=== PATIENT | male | born 1995 | race Caucasian/White ===

== ENCOUNTER 2021-05-06 09:06 | Outpatient (REF) | payer BC, SELFPAY ==
[2021-05-06 11:03] LABS: Alanine Aminotransferase 27 U/L (0-40); Albumin Level 4.4 g/dL (3.5-5.0); Alkaline Phosphatase 54 U/L (39-117); Anion Gap 11 (12-20); Aspartate Amino Transferase 18 U/L (5-37); Bilirubin Total 0.6 mg/dL (0.0-1.0); Blood Urea Nitrogen 9 mg/dL (9-16); Calcium 9.5 mg/dL (8.4-10.2); Carbon Dioxide 29 mmol/L (22-29); Chloride 104 mmol/L (96-108); Cholesterol 119 mg/dL; Estimated Glomerular Filt Rate > 60; Glucose Fasting 91 mg/dL (60-99); HDL Cholesterol 47 mg/dL; LDL Cholesterol Calculated 63 mg/dl; Potassium 4.5 mmol/L (3.3-5.1); Sodium 139 mmol/L (135-145); Total Protein 6.8 g/dL (6.5-8.0); Triglycerides 49 mg/dL
[2021-05-06 11:24] LABS: TSH reflex Free T4 0.84 uIU/mL (0.32-4.0)
== END 2021-05-06 09:07 | disposition home or self-care (01) ==
LOC: HO.WFDLDS 09:06
PROVIDERS: Visit Provider Family Medicine
DX: Z00.00 Encounter for general adult medical examination without abnormal findings (principal)
CPT/HCPCS: 36415; 80053; 80061; 84443

== ENCOUNTER 2021-10-06 10:39 | Outpatient (REF) | payer BC, SELFPAY | END 2021-10-06 10:40 | disposition home or self-care (01) | LOC: HO.HMGCLDS 10:39 | PROVIDERS: PCP Family Medicine; Visit Provider Internal Medicine | DX: Z20.822 Contact with and (suspected) exposure to COVID-19 (principal) | CPT/HCPCS: C9803; U0003; U0005 ==

== ENCOUNTER 2023-11-30 08:48 | Outpatient (AMB) | payer BC, SELFPAY ==
--- NOTE | 2023-11-30 08:52 | A.OFFPC_ITS ---
Vital Signs 11/30/23 08:53 11/30/23 08:54 Height 5 ft 6 in 5 ft 7 in Weight 143 lb BMI 22.4 BP 122/76 Blood Pressure Location Lt brachial Position Sitting Pulse 72 Pulse Source Pulse Oximeter Temp 100 F Temp Source Oral Intake Visit Reasons: PE Intake Note: Patient is here for his physical, and is concerned about bump under right knee, and random twitches in his body, and weight loss. Allergies Fish Containing Products Allergy (Verified 11/30/23 08:56) broke out in hives shellfish derived Allergy (Verified 11/30/23 08:56) food piosining, vomiting, diarrhea Tobacco use date assessed: 11/30/23 Dental Screening Dental Screen Date: 11/30/23 Did you have a dental visit in the last 12 months?: Yes Did you have a dental problem in the last 6 months where you did not have access to dental care?: No Was dental information given to patient?: Patient has dentist HPI PE HPI Details 28 y/o male presents for a CPE w/ f/u la bs and health maintenance. No recent labs to review. PHQ-9 total score is 9. DAYANA-7 12. Pt notes he had went to see a therapist a few weeks ago but did not like them. Pt reports concerns about a bump under R knee. Pt is also concerned about weight loss - he notes he had been putting in effort towards intentional weight loss but states he feels like he has been putting himself in calories deficit lately. He reports twitching at night. REPLACED BY [facility] Surgical History (Updated 11/30/23 @ 09:00 by Radha Nagel CMA) Hx of tonsillectomy Family History (Updated 11/30/23 @ 09:02 by Radha Nagel CMA) Mother Celiac disease Father Heart attack Social History (Updated 11/30/23 @ 09:05 by Radha Nagel CMA) Household Members: Significant Other Both parents involved: No Caregiver staying overnight: No Housing: House Are you a primary early breastfeeding care specialist to a significant other at home: No Do you presently have visiting nurse or other home services: No 75 years or older and lives alone: No Alcohol intake: never Patient Tobacco Use Status: Never used Tobacco e-Cigarette/Vaping Use: Never Used Special ahsan needs: No Agree to transfusion: Yes service: No Current occupational status: employed 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 Cognitive needs: No Hearing needs: No Vision needs: No Questionnaire PHQ-9 Over the last 2 weeks, how often have you been bothered by any of the following problems? 1. Little interest or pleasure in doing things: several days 2. Feeling down, depressed, or hopeless: several days 3. Trouble falling or staying asleep, or sleeping too much: nearly every day 4. Feeling tired or having little energy: nearly every day 5. Poor appetite or overeating: not at all 6. Feeling bad about yourself - or that you are a failure or have let yourself or your family down: several days 7. Trouble concentrating on things, such as reading the newspaper or watching television: not at all 8. Moving or speaking so slowly that other people could have noticed. Or the opposite - being so fidgety or restless that you have been moving around a lot more than usual: not at all 9. Thoughts that you would be better off or of hurting yourself in some way: not at all Total score: 9 Depression Screening Interpretation: Positive Depression Screening Follow-up: Declines treatment Depression Screening Done: Yes 45821 - PHQ-9 Billing: Yes Source: Developed by Drs. Osmel Prakash, Laura Waddell, Nigel Royal and colleagues, with an educational ina from [employer]. Thrive Questionnaire Date Thrive assessed: 11/30/23 I am a: Patient What is your living situation today?: I have a steady place to live Within the past 12 months, did the food you bought not last and you didn't have the money to get more?: Never true Within the past 12 months, did you worry whether your food would run out before you got money to buy more?: Never true Do you have trouble paying for medicines?: No Do you have trouble getting transportation to medical appointments?: No Do you have trouble paying your heating and electricity bill?: No Do you have trouble taking care of your child, family member or friend?: No Do you have trouble with day-to-day activities such as bathing, preparing meals, shopping, managing finances, etc.?: No Are you currently unemployed and looking for a job?: No Are you interested in more education?: No THRIVE Score: 0 AUDIT C Alcohol Use Questionnaire (AUDIT-C) 1. How often do you have a drink containing alcohol?: Never 3. How often do you have six or more drinks on one occasion?: Never Total Score: 0 DAYANA-7 AMB Questionnaire DAYANA-7 Date DAYANA - 7 assessed: 11/30/23 Feeling nervous, anxious, or on edge: 0 = Not at all Not being able to stop or control worryin = Nearly every day Worrying too much about different things: 0 = Not at all Trouble relaxin = Nearly every day Being so restless that it is hard to sit still: 0 = Not at all Becoming easily annoyed or irritable: 3 = Nearly every day Feeling afraid as if something awful might happen: 3 = Nearly every day Total DAYANA-7 score (0-4 normal; 5-9 mild; 10-14 moderate; 15-21 severe): 12 Source: Developed by Drs. Osmel Prakash, Laura Waddell, Nigel Royal and colleagues, with an educational ina from [employer]. DAYANA-7 Assessment Billing DAYANA-7 Assessment Tool: DAYANA-7 Assessment 05242 Review of Systems Const Denies chills, Denies fatigue, Denies fever(s), Denies headache(s) and Denies weakness Eyes Denies change in vision ENT Denies dizziness, Denies headache(s), Denies hearing loss, Denies nasal congestion, Denies sinus pain, Denies sinus pressure and Denies sore throat Card Denies chest pain, Denies lightheadedness, Denies dyspnea and Denies other (palpitations) Resp Denies cough, Denies dyspnea and Denies wheezing GI Denies abdominal pain, Denies melena, Denies hematochezia, Denies change in bowel habits, Denies dyspepsia and Denies nausea Denies hematuria and Denies dysuria Musc Denies abnormal gait, Denies myalgias, Denies arthralgias, Denies numbness and Denies tingling Skin/Breast Denies rash, Denies unusual bruising and Denies wounds Neuro Denies abnormal gait, Denies dizziness, Denies headache(s), Denies memory loss, Denies numbness, Denies Sensory deficit (Neuro), Denies tingling and Denies weakness Psych Reports anxiety, Reports depression and Denies memory loss Endo Denies cold intolerance, Denies fatigue, Denies heat intolerance, Denies polydipsia and Denies polyuria Joo/Lymph Denies easy bleeding and Denies easy bruising Aller/Immun Denies wheezing Physical exam (Primary Care) Vital Signs: Last Vital Signs Temp 100 F 11/30/23 08:54 Pulse 72 11/30/23 08:54 BP 122/76 11/30/23 08:54 BMI result Body Mass Index 22.4 Tobacco/Smoking Status: Tobacco use Status Tobacco use date assessed 11/30/23 11/30/23 09:06 Patient Tobacco Use Status Never used Tobacco 11/30/23 09:06 e-Cigarette/Vaping Use Never Used 11/30/23 09:06 PHQ-9: PHQ-9 Score PHQ-9: Total score 9 11/30/23 09:13 Depression Screening Interpretation: Positive Depression Screening Follow-up: Declines treatment Thrive Assessment: Date of Thrive Assessment Date Thrive assessed 11/30/23 11/30/23 09:13 Const General: no acute distress, well developed, alert and awake Nutritional Appearance: well nourished Orientation/consciousness: patient oriented x3 HENMT Head: Yes normocephalic and Yes atraumatic Ears: hearing grossly normal bilaterally and TM's normal bilaterally General nose exam: Normal external nose present and Normal nares present Mouth: Normal oral and palatal mucosa present and moist mucous membranes Teeth and gingiva: dentition normal Throat: Yes posterior oropharynx normal Eyes General: appearance normal, both eyes and all related structures Pupils: Equal, round and reactive pupils present and Pupil accommodation reflex normal EOM: EOMs intact bilaterally Neck Neck: Yes normal visual inspection, Yes no lymphadenopathy and Yes trachea midline Thyroid: Thyroid normal Carotids: no bruits Lymphatic: no lymphadenopathy noted Chest Chest palpation & inspection: normal inspection of the chest Resp Effort & Inspection: normal respiratory effort Auscultation: clear to auscultation bilaterally Cardio Rate: regular rate Rhythm: regular rhythm Heart sounds: S1 normal heart sound present, S2 normal heart sound present, no gallops, no murmurs and no rubs Bruits: no abdominal aortic bruits and no carotid bruits GI Palpation (GI): No Abdominal aortic bruit present, Soft to palpation, nontender, No hepatosplenomegaly present and No Rebound tenderness present Auscultation: normal bowel sounds General: Yes no CVA tenderness Back/Spine/Pelvis Back: no CVA tenderness Cervical Spine: cervical ROM normal and No Cervical spine tenderness Thoracic/Lumbar Spine: thoraco-lumbar ROM normal, No pain with thoraco-lumbar ROM, No thoracic spinal tenderness and No lumbar spinal tenderness Skin Lesions: no lesions Rashes: no rashes Trauma: no lacerations or abrasions Wounds: no wounds Nails: normal Neuro General: patient oriented x3 Cranial nerves: Yes Equal, round and reactive pupils present Cognition (Neuro): normal cognition Gait exam (Neuro): Normal gait present Motor exam (neuro): 5/5 motor strength present throughout Sensory Exam: No Sensory deficit (Neuro) Deep tendon reflexes (DTR's): Right patellar reflex intensity grade: 2+ and Left patellar reflex intensity grade: 2+ Extrem General: Yes normal to inspection and No edema Psych Appearance: grossly normal Affect: normal affect Attitude: cooperative Thought process: Normal thought process present Assessment and Plan Assessment & Plan (1) Annual physical exam: Code(s): Z00.00 - Encounter for general adult medical examination without abnormal findings Plan: 28-year-old?male?presents?for?complete?physical?exam (2) Depression with anxiety: Code(s): F41.8 - Other specified anxiety disorders Plan: Mild?depression?and?possibly?mild?anxiety. He?has?seen?a?therapist?and?psychiatrist?briefly?in?the?recent?past. Currently?declines?treatment?but?I?did?recommend?he?may ?benefit?from?a?therapist.??I?did?make?him?aware?that?medications?can?sometimes? be?helpful?and?he?can?talk?to?me?if?he?wants?to?reconsider?them. (3) Weight loss: Code(s): R63.4 - Abnormal weight loss Plan: Intentional?weight?loss. However,?patient?seems?to?restrict?his?calories?still?thou gh?his?weight?is?in?the?middle?of?the?normal?range?by?BMI. Encouraged?him?to?start?adding?back?some?calories?so?he?is?no?longer?in?deficit? as?part?of?a?maintenance?plan. Can?consider?protein?shakes (4) Twitching: Code(s): R25.3 - Fasciculation Plan: Patient?notes?that?he?often?skips?early?meals?of?the?day May?have?some?electrolyte?imbalances?and?possible?dehydration Encouraged?good?hydration,?electrolyte?drinks?and?regular?intake?of?food Will?check?labs?including?electrolytes?and?thyroid?level Orders: Orders Comprehensive [place]. Panel Fast Today Z00.00 - Encounter for general adult medical examination without abnormal findings UA and rflx microscopic Today Z00.00 - Encounter for general adult medical examination without abnormal findings TSH reflex Free T4 Today Z00.00 - Encounter for general adult medical examination without abnormal findings Lipid Panel Today Z00.00 - Encounter for general adult medical examination without abnormal findings Microalbumin, Random (w Creat) Today I10 - Essential (primary) hypertension Coding Level of Care Code Est Pt Level 3 (54700) Est Pt Prev Care 18-39y(98529) Diagnoses Annual physical exam Z00.00 Depression with anxiety F41.8 Weight loss R63.4 Twitching R25.3 Additional Codes DAYANA-7 Assessment Billing - DAYANA-7 Assessment Tool: DAYANA-7 Assessment 84909 ([id number])
[2023-11-30 08:54] VITALS: BP 122/76; PULSE 72; TEMP 37.7; BMI 22.4
== END 2023-11-30 09:39 | disposition home or self-care (01) ==
PROVIDERS: PCP Family Medicine; Visit Provider Family Medicine
DX: Z00.00 Encounter for general adult medical examination without abnormal findings (principal); F41.8 Other specified anxiety disorders; R63.4 Abnormal weight loss; R25.3 Fasciculation
CPT/HCPCS: 99395

== ENCOUNTER 2023-12-05 09:36 | Outpatient (REF) | payer BC, SELFPAY ==
[2023-12-05 11:31] LABS: Appearance Urine Clear; Color Urine Yellow; Glucose Urine UA Negative (Negative); Leukocyte Esterase Urine Negative (Negative); Nitrite Urine Negative (Negative); Specific Gravity - Urine <= 1.005 (1.005-1.025); Urine Blood Negative (Negative); Urine Ketones Negative (Negative); Urine Protein Negative (Neg-Trace)
[2023-12-05 12:26] LABS: Alanine Aminotransferase 49 U/L (0-40); Albumin Level 4.4 g/dL (3.5-5.0); Alkaline Phosphatase 50 U/L (39-117); Anion Gap 9 (12-20); Aspartate Amino Transferase 29 U/L (5-37); Bilirubin Total 0.6 mg/dL (0.0-1.0); Blood Urea Nitrogen 14 mg/dL (9-16); Calcium 9.7 mg/dL (8.4-10.2); Carbon Dioxide 30 mmol/L (22-29); Chloride 104 mmol/L (96-108); Cholesterol 124 mg/dL (<200); Estimated Glomerular Filt Rate > 60; Glucose Fasting 86 mg/dL (60-99); HDL Cholesterol 66 mg/dL (>40); LDL Cholesterol Calculated 48 mg/dL (<100); Potassium 3.5 mmol/L (3.3-5.1); Sodium 139 mmol/L (135-145); Triglycerides 50 mg/dL (<150)
[2023-12-05 12:34] LABS: TSH reflex Free T4 1.66 uIU/mL (0.32-4.0)
[2023-12-05 13:06] LABS: Creatinine Urine 6.89 mg/dL; Microalbumin Urine < 5.0 mg/L
== END 2023-12-05 09:37 | disposition home or self-care (01) ==
LOC: HO.WFDLDS 09:36
PROVIDERS: Visit Provider Family Medicine
DX: Z00.00 Encounter for general adult medical examination without abnormal findings (principal); I10 Essential (primary) hypertension
CPT/HCPCS: 36415; 80053; 80061; 81003; 82043; 82570; 84443

== ENCOUNTER 2023-12-21 15:23 | Outpatient (AMB) | payer BC, SELFPAY ==
--- NOTE | 2023-12-21 15:32 | MHC.PC.OV ---
Vital Signs 12/21/23 15:33 Height 5 ft 7 in Weight 143 lb 8 oz BMI 22.5 BP 118/60 Blood Pressure Location Rt brachial Position Sitting Respiration 13 Pulse 72 Pulse Source Pulse Oximeter Temp 98.2 F Temp Source Temporal Artery Scan Pulse Oximetry (%) 99 Oxygen Delivery Method Room Air Intake Visit Reasons: f/u weight loss, labs Rib Cutter Required: No Accompanied by: Self / Same As Patient Allergies Fish Containing Products Allergy (Verified 12/21/23 15:38) broke out in hives shellfish derived Allergy (Verified 12/21/23 15:38) food piosining, vomiting, diarrhea Tobacco use date assessed: 11/30/23 Dental Screening Dental Screen Date: 12/21/23 Did you have a dental visit in the last 12 months?: Yes Did you have a dental problem in the last 6 months where you did not have access to dental care?: No Was dental information given to patient?: Patient has dentist HPI f/u weight loss, labs HPI Details 28 y/o male presents to f/u weight loss/labs. Pt had intentional weight loss and pt seem to restrict his calories. Weight had been in middle of normal range by BMI, encouraged him to start adding back some calories so he is no longer in deficit as part of a maintenance plan. Labs were drawn 12/05/23. Reviewed labs with pt. Mildly elevated ALT of 49. Pt denies any excessive tylenol use. He does note he could drink more water. Weight remains practically unchanged from last office visit 11/30/23. Pt notes depression/anxiety is unchanged. HPI Comments History of Present Illness Details Documentation assistance for Garrett Hope MD, was provided by Elliot Eastman,? Forensic Photographer on 12/21/2023 4:20 PM EST. I, Dr. Hope, have read, observed, and verified documentation. [facility] Medical History (Updated 12/21/23 @ 16:20 by Elliot Eastman) No pertinent past medical history Surgical History Hx of tonsillectomy Family History Mother Celiac disease Father Heart attack Other Mental health disorder Substance abuse Social History Household Members: Significant Other Both parents involved: No Caregiver staying overnight: No Housing: House Are you a primary career development manager to a significant other at home: No Do you presently have visiting nurse or other home services: No 75 years or older and lives alone: No Alcohol intake: never Patient Tobacco Use Status: Never used Tobacco e-Cigarette/Vaping Use: Never Used Special ahsan needs: No Agree to transfusion: Yes service: No Current occupational status: employed 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 Cognitive needs: No Hearing needs: No Vision needs: No Questionnaire Thrive Questionnaire Date Thrive assessed: 11/30/23 DAYANA-7 AMB Questionnaire DAYANA-7 Date DAYANA - 7 assessed: 11/30/23 Source: Developed by Drs. Osmel Prakash, Laura Waddell, Nigel Royal and colleagues, with an educational ina from [employer]. Review of Systems Const Denies chills, Denies fatigue, Denies fever(s), Denies headache(s) and Denies weakness ENT Denies dizziness and Denies headache(s) Card Denies dyspnea Resp Denies cough, Denies dyspnea, Denies wheezing and Denies other (shortness of breath) Musc Denies numbness and Denies tingling Neuro Denies dizziness, Denies headache(s), Denies numbness, Denies tingling and Denies weakness Psych Reports anxiety and Reports depression Endo Denies fatigue Aller/Immun Denies wheezing Physical exam (Primary Care) Vital Signs: Last Vital Signs Temp 98.2 F 12/21/23 15:33 Pulse 72 12/21/23 15:33 Resp 13 12/21/23 15:33 BP 118/60 12/21/23 15:33 Pulse Ox 99 12/21/23 15:33 Oxygen Delivery Method Room Air 12/21/23 15:33 BMI result Body Mass Index 22.5 Tobacco/Smoking Status: Tobacco use Status Tobacco use date assessed 11/30/23 12/21/23 15:40 Patient Tobacco Use Status Never used Tobacco 12/21/23 15:40 e-Cigarette/Vaping Use Never Used 12/21/23 15:40 Thrive Assessment: Date of Thrive Assessment Date Thrive assessed 11/30/23 12/21/23 15:40 Const General: well developed; No acute distress Nutritional Appearance: well nourished Orientation/consciousness: patient oriented x3 HENMT Head: Yes normocephalic and Yes atraumatic Eyes General: appearance normal, both eyes and all related structures Pupils: Equal, round and reactive pupils present EOM: EOMs intact bilaterally Resp Effort & Inspection: normal respiratory effort Neuro General: patient oriented x3 and gait normal Cranial nerves: Yes Equal, round and reactive pupils present Psych Affect: normal affect Assessment and Plan Assessment & Plan (1) Weight loss: Code(s): R63.4 - Abnormal weight loss Plan: Weight?has?remained?steady Continue?healthy?diet (2) Twitching: Code(s): R25.3 - Fasciculation Plan: No?cause?found?for?twitching Thyroid?levels?are?okay.??Electrolytes?are?okay Mild?elevation?in?ALT?and?doubt?this?is?related May?have?intermittent?electrolyte?changes?as?patient?notes?that?he?does?not?drink?much?water. Increase?hydration Will?follow-up?at?next?visit?and?he?can?let?me?know?if?symptoms?are?changing/worsening (3) Elevated ALT measurement: Code(s): R74.01 - Elevation of levels of liver transaminase levels Plan: Mild?elevation?in?ALT Minimal?Tylenol?use.??Patient?has?never?used?alcohol. He?does?note?he?does?not?drink?much?water?so?I?advised?him?to?increase?hydration Will?repeat?in?6?weeks.??If?the?same?or?higher,?will?check?an?ultrasound. (4) Depression with anxiety: Code(s): F41.8 - Other specified anxiety disorders Plan: Patient?notes?some?perseveration He?will?try?bupropion Will?follow-up?in?6?weeks Orders: Orders Comprehensive Met. Panel Today R74.01 - Elevation of levels of liver transaminase levels Hepatitis B,C Profile Today R74.01 - Elevation of levels of liver transaminase levels, Z11.3 - Encounter for screening for infections with a predominantly sexual mode of transmission Medications: New bupropion HCl 75 mg PO DAILY 30 tabs 1RF 30 days Coding Level of Care Code Est Pt Level 4 (74603) Diagnoses Weight loss R63.4 Twitching R25.3 Elevated ALT measurement R74.01 Depression with anxiety F41.8
[2023-12-21 15:33] VITALS: BP 118/60; PULSE 72; RESP 13; TEMP 36.8; O2SAT 99; BMI 22.5
== END 2023-12-21 16:33 | disposition home or self-care (01) ==
PROVIDERS: PCP Family Medicine; Visit Provider Family Medicine
DX: R63.4 Abnormal weight loss (principal); R25.3 Fasciculation; R74.01 Elevation of levels of liver transaminase levels; F41.8 Other specified anxiety disorders
CPT/HCPCS: 99214

== ENCOUNTER 2024-01-27 08:19 | Outpatient (REF) | payer BC, SELFPAY ==
[2024-01-27 12:49] LABS: HBS Num1 48.96 mIU/mL (0-7.99); HBc Num1 0.16 S/CO (0.00-0.79); HBsAGNum1 0.31 S/CO (0.00-0.99); Hepatitis B Core Antibody Nonreactive (Nonreactive); Hepatitis B Surface Antigen Negative (Negative); ~HepC Num1 0.09 S/CO (0.00-0.79); ~Hepatitis B Surface Antibody REACTIVE (Nonreactive); ~Hepatitis C Antibody Nonreactive (Nonreactive)
[2024-01-27 12:55] LABS: Alanine Aminotransferase 54 U/L (0-40); Albumin Level 4.4 g/dL (3.5-5.0); Alkaline Phosphatase 57 U/L (39-117); Anion Gap 10 (12-20); Aspartate Amino Transferase 31 U/L (5-37); Bilirubin Total 0.4 mg/dL (0.0-1.0); Blood Urea Nitrogen 15 mg/dL (9-16); Calcium 9.5 mg/dL (8.4-10.2); Carbon Dioxide 29 mmol/L (22-29); Chloride 104 mmol/L (96-108); Estimated Glomerular Filt Rate > 60; Glucose Random 79 mg/dL (60-115); Potassium 3.8 mmol/L (3.3-5.1); Sodium 139 mmol/L (135-145)
== END 2024-01-27 08:20 | disposition home or self-care (01) ==
LOC: HO.WFDLDS 08:19
PROVIDERS: Visit Provider Family Medicine
DX: Z11.3 Encounter for screening for infections with a predominantly sexual mode of transmission (principal); R74.01 Elevation of levels of liver transaminase levels
CPT/HCPCS: 36415; 80053; 86704; 86706; 86803; 87340

== ENCOUNTER 2024-02-01 16:22 | Outpatient (AMB) | payer BC, SELFPAY ==
[2024-02-01 16:24] VITALS: BP 122/62; PULSE 77; O2SAT 98; BMI 22.6
--- NOTE | 2024-02-01 16:24 | A.OFFPC_ITS ---
Vital Signs 02/01/24 16:24 Height 5 ft 7 in Weight 144 lb 8 oz BMI 22.6 BP 122/62 Blood Pressure Location Lt brachial Position Sitting Pulse 77 Pulse Source Pulse Oximeter Pulse Oximetry (%) 98 Oxygen Delivery Method Room Air Intake Visit Reasons: f/u anxiety/depression,elev liver enzymes Intake Note: Patient is here for follow up on anxiety/depression, and liver enzymes. Allergies Fish Containing Products Allergy (Verified 02/01/24 16:27) broke out in hives shellfish derived Allergy (Verified 02/01/24 16:27) food piosining, vomiting, diarrhea Medication List - Last Reconciled 02/01/24 by Garrett Hope MD betamethasone dipropionate 0.05% 1 appl topical BID PRN 30 days bupropion HCl 75 mg PO DAILY 30 days Tobacco use date assessed: 02/01/24 Dental Screening Dental Screen Date: 12/21/23 HPI f/u anxiety/depression,elev liver enzymes HPI Details 28 y/o male presents to f/u anxiety/depr ession, elev. liver enzymes. Labs were drawn 01/27/24. Reviewed labs with pt. Ongoing elevated ALT of 54. PHQ-9 11, DAYANA-7 4 today. Anxiety seems to have improved. Pt reports he has started bupropion which he says has been helping a bit. [facility] Medical History No pertinent past medical history Surgical History Hx of tonsillectomy Family History Mother Celiac disease Father Heart attack Other Mental health disorder Substance abuse Social History Household Members: Significant Other Both parents involved: No Caregiver staying overnight: No Housing: House Are you a primary animal care specialist to a significant other at home: No Do you presently have visiting nurse or other home services: No 75 years or older and lives alone: No Alcohol intake: never Patient Tobacco Use Status: Never used Tobacco e-Cigarette/Vaping Use: Never Used Special ahsan needs: No Agree to transfusion: Yes service: No Current occupational status: employed 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 Cognitive needs: No Hearing needs: No Vision needs: No Questionnaire PHQ-9 Over the last 2 weeks, how often have you been bothered by any of the following problems? 1. Little interest or pleasure in doing things: more than half the days 2. Feeling down, depressed, or hopeless: more than half the days 3. Trouble falling or staying asleep, or sleeping too much: nearly every day 4. Feeling tired or having little energy: more than half the days 5. Poor appetite or overeating: several days 6. Feeling bad about yourself - or that you are a failure or have let yourself or your family down: not at all 7. Trouble concentrating on things, such as reading the newspaper or watching television: several days 8. Moving or speaking so slowly that other people could have noticed. Or the opposite - being so fidgety or restless that you have been moving around a lot more than usual: not at all 9. Thoughts that you would be better off or of hurting yourself in some way: not at all Total score: 11 Depression Screening Interpretation: Positive Depression Screening Done: Yes 27478 - PHQ-9 Billing: Yes Source: Developed by Drs. Osmel Prakash, Laura Waddell, Nigel Royal and colleagues, with an educational ina from [employer]. Thrive Questionnaire Date Thrive assessed: 11/30/23 DAYANA-7 AMB Questionnaire DAYANA-7 Date DAYANA - 7 assessed: 02/01/24 Feeling nervous, anxious, or on edge: 0 = Not at all Not being able to stop or control worryin = Not at all Worrying too much about different things: 0 = Not at all Trouble relaxin = Not at all Being so restless that it is hard to sit still: 0 = Not at all Becoming easily annoyed or irritable: 1 = Several days Feeling afraid as if something awful might happen: 3 = Nearly every day Total DAYANA-7 score (0-4 normal; 5-9 mild; 10-14 moderate; 15-21 severe): 4 Source: Developed by Drs. Osmel Prakash, Laura Waddell, Nigel Royal and colleagues, with an educational ina from [employer]. DAYANA-7 Assessment Billing DAYANA-7 Assessment Tool: DAYANA-7 Assessment 09557 Review of Systems Const Denies chills, Denies fatigue, Denies fever(s), Denies headache(s) and Denies weakness ENT Denies dizziness and Denies headache(s) Card Denies chest pain, Denies lightheadedness, Denies dyspnea and Denies other (Palpitations) Resp Denies cough, Denies dyspnea, Denies wheezing and Denies other ( shortness of breath) Musc Denies numbness and Denies tingling Neuro Denies dizziness, Denies headache(s), Denies numbness, Denies tingling, Denies paresthesias and Denies weakness Psych Denies anxiety and Denies depression Endo Denies fatigue Aller/Immun Denies wheezing Physical exam (Primary Care) Vital Signs: Last Vital Signs Pulse 77 02/01/24 16:24 BP 122/62 02/01/24 16:24 Pulse Ox 98 02/01/24 16:24 Oxygen Delivery Method Room Air 02/01/24 16:24 BMI result Body Mass Index 22.6 Tobacco/Smoking Status: Tobacco use Status Tobacco use date assessed 02/01/24 02/01/24 16:33 Patient Tobacco Use Status Never used Tobacco 02/01/24 16:33 e-Cigarette/Vaping Use Never Used 02/01/24 16:33 PHQ-9: PHQ-9 Score PHQ-9: Total score 11 02/01/24 16:33 Depression Screening Interpretation: Positive Thrive Assessment: Date of Thrive Assessment Date Thrive assessed 11/30/23 02/01/24 16:33 Const General: no acute distress and well developed Nutritional Appearance: well nourished Orientation/consciousness: patient oriented x3 HENMT Head: Yes normocephalic and Yes atraumatic Eyes General: appearance normal, both eyes and all related structures Pupils: Equal, round and reactive pupils present EOM: EOMs intact bilaterally Resp Effort & Inspection: normal respiratory effort Auscultation: clear to auscultation bilaterally Cardio Rate: regular rate Rhythm: regular rhythm Heart sounds: S1 normal heart sound present, S2 normal heart sound present, no gallops, no murmurs and no rubs Neuro General: patient oriented x3 and gait normal Cranial nerves: Yes Equal, round and reactive pupils present Psych Affect: normal affect Assessment and Plan Assessment & Plan (1) Depression with anxiety: Code(s): F41.8 - Other specified anxiety disorders Plan: Anxiety?is?improved?on?bupropion?75?mg?daily He?will?take 75?mg?b.i.d. Follow-up?in?about?2?months (2) Elevated ALT measurement: Code(s): R74.01 - Elevation of levels of liver transaminase levels Plan: ALT?has?risen?slightly. Hepatitis?panel?shows?patient?is?immune?to?hep?B?and?no?hepatitis?infections Will?check?ultrasound Orders: Orders US abdomen comp w elastography Today R74.01 - Elevation of levels of liver transaminase levels Medications: Changed From bupropion HCl 75 mg PO DAILY 30 days 30 tabs 1RF To bupropion HCl 75 mg PO BID 30 days 60 tabs 1RF Coding Level of Care Code Est Pt Level 3 (54404) Diagnoses Depression with anxiety F41.8 Elevated ALT measurement R74.01 Additional Codes DAYANA-7 Assessment Billing - DAYANA-7 Assessment Tool: DAYANA-7 Assessment 76507 ([id number])
== END 2024-02-01 16:51 | disposition home or self-care (01) ==
PROVIDERS: PCP Family Medicine; Visit Provider Family Medicine
DX: F41.8 Other specified anxiety disorders (principal); R74.01 Elevation of levels of liver transaminase levels
CPT/HCPCS: 96127; 99214

== ENCOUNTER 2024-02-27 08:20 | Outpatient (REF) | payer BC, SELFPAY ==
--- NOTE | ~2024-02-27 | US_ITS ---
EXAMINATION: US COMPLETE ABDOMEN WITH LIVER ELASTOGRAPHY CLINICAL INFORMATION: Elevated transaminase. COMPARISON: None available. TECHNIQUE: Real-time imaging of the abdominal viscera. Noninvasive ultrasound liver fibrosis assessment is performed using Mayo ElastPQ point quantification shear wave elastography (2D-SWE) with a C5-2 MHz transducer. Multiple elastography samples are obtained. FINDINGS: PANCREAS: The visualized pancreatic head is normal in appearance. The remainder of the pancreas is obscured from visualization by the overlying bowel gas. ABDOMINAL AORTA: The proximal, middle, and distal aortic segments are normal in caliber. INFERIOR VENA CAVA: Visualized portions are normal. LIVER: The liver demonstrates normal size, contour and echogenicity. No focal lesion or intrahepatic biliary duct dilatation. The right lobe measures 15.4 cm in length. The left lobe measures 8.8 cm in length. Portal flow is hepatopedal. Shear wave liver elastography median stiffness is 1.48 m/s (reference: normal median stiffness is 1.3 m/s or less). IQR/median stiffness to assess sampling precision is 0.17 (reference: good quality data set is IQR/median stiffness of 0.15 or less). GALLBLADDER: Normal. The gallbladder is physiologically distended without evidence of stones, sludge, polyps, wall thickening or pericholecystic fluid. COMMON BILE DUCT: Normal in caliber measuring 0.3 cm in diameter. RIGHT KIDNEY: Normal. No hydronephrosis. No renal calculi or focal parenchymal lesions. The kidney measures 11.7 cm in maximum dimension. LEFT KIDNEY: Normal. No hydronephrosis. No renal calculi or focal parenchymal lesions. The kidney measures 11.0 cm in maximum dimension. SPLEEN: Normal. The spleen measures 10.4 cm in maximum dimension. FREE FLUID: None. US/US abdomen comp w elastography IMPRESSION: 1. No abnormality seen.. Limited visualization of the pancreas. 2. Liver Elastography: In the absence of other known clinical signs, measurements rule out compensated advanced chronic liver disease. If there are known clinical signs, further testing may be needed for confirmation. REFERENCE: Society of Radiologists in Ultrasound Liver Stiffness Thresholds (2020): LIVER STIFFNESS THRESHOLDS: *Liver Stiffness equal or less than 1.3 m/s: High probability of being normal. *Liver Stiffness less than 1.7 m/s: In the absence of other known clinical signs, rules out compensated advanced chronic liver disease. *Liver Stiffness 1.7-2.1 m/s: Suggestive of compensated advanced chronic liver disease but need further test for confirmation. *Liver Stiffness over 2.1 m/s: Rules in compensated advanced chronic liver disease. *Liver Stiffness over 2.4 m/s: Suggestive of clinically significant portal hypertension. QUALITY OF DATA SET: *IQR/Median value equal or less than 0.15 implies a quality data set. *IQR/Median value over 0.15 implies a poor quality data set. SIGNIFICANT CHANGE FROM PRIOR EXAM: Significant change if liver stiffness measurement is 10% or greater from prior exam. OTHER CONSIDERATIONS: The stage of liver fibrosis may be overestimated in the setting of acute hepatitis, liver inflammation, elevated liver function tests, hepatic vascular congestion, obstructive cholestasis, non-fasting state, and infiltrative diseases such as amyloidosis and lymphoma. In some patients with NAFLD, the liver stiffness thresholds for compensated advanced chronic liver disease may be lower. In causes other than viral hepatitis and NAFLD, liver stiffness thresholds are not well established.
== END 2024-02-27 08:21 | disposition home or self-care (01) ==
LOC: HO.US 08:20
PROVIDERS: PCP Family Medicine; Visit Provider Family Medicine
DX: R74.01 Elevation of levels of liver transaminase levels (principal)
CPT/HCPCS: 76700; 76981

== ENCOUNTER 2024-03-12 08:38 | Outpatient (AMB) | payer BC, SELFPAY ==
[2024-03-12 09:01] VITALS: BP 120/62; PULSE 81; O2SAT 98; BMI 22.9
--- NOTE | 2024-03-12 09:01 | MHC.PC.OV ---
Vital Signs 03/12/24 09:01 Height 5 ft 7 in Weight 146 lb BMI 22.9 BP 120/62 Blood Pressure Location Rt brachial Position Sitting Pulse 81 Pulse Source Pulse Oximeter Pulse Oximetry (%) 98 Oxygen Delivery Method Room Air Intake Visit Reasons: f/u anxiety/depression Intake Note: Patient is following up on anxiety and depression, and ultrasound today. Allergies Fish Containing Products Allergy (Verified 03/12/24 09:03) broke out in hives shellfish derived Allergy (Verified 03/12/24 09:03) food piosining, vomiting, diarrhea Medication List - Last Reconciled 03/12/24 by Garrett Hope MD betamethasone dipropionate 0.05% 1 appl topical BID PRN 30 days bupropion HCl 75 mg PO BID 30 days citalopram 20 mg PO DAILY 90 days loratadine (Allergy Relief (loratadine)) 10 mg PO DAILY triamcinolone acetonide (Nasacort) 1 spray intranasal DAILY Tobacco use date assessed: 02/01/24 Dental Screening Dental Screen Date: 12/21/23 HPI f/u anxiety/depression HPI Details 28 y/o male presents to f/u anxiety/depression. Also f/u elevated liver enzymes with ultrasound. Had increased bupropion from 75mg daily to 75 mg b.i.d. PHQ-9 13, DAYANA-7 7 today. Depression seems to have worsened despite increasing bupropion. He states he did not seem to notice anything with his depression with the change in his meds. He does note anxiety has improved. Does not currently have a therapist. Liver enzymes had increased slightly and I have ordered an ultrasound with elastography. Liver elastography does not seem to have been read yet. HPI Comments History of Present Illness Details Documentation assistance for Garrett Hope MD, was provided by Elliot Eastman, [employer] on 03/12/2024 at 9:25 AM EST. I, Dr. Hope, have read, observed, and verified documentation. PFSH Medical History No pertinent past medical history Surgical History Hx of tonsillectomy Family History Mother Celiac disease Father Heart attack Other Mental health disorder Substance abuse Social History Household Members: Significant Other Both parents involved: No Caregiver staying overnight: No Housing: House Are you a primary health care law specialist to a significant other at home: No Do you presently have visiting nurse or other home services: No 75 years or older and lives alone: No Alcohol intake: never Patient Tobacco Use Status: Never used Tobacco e-Cigarette/Vaping Use: Never Used Special ahsan needs: No Agree to transfusion: Yes service: No Current occupational status: employed 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 Cognitive needs: No Hearing needs: No Vision needs: No Questionnaire PHQ-9 Over the last 2 weeks, how often have you been bothered by any of the following problems? 1. Little interest or pleasure in doing things: more than half the days 2. Feeling down, depressed, or hopeless: more than half the days 3. Trouble falling or staying asleep, or sleeping too much: nearly every day 4. Feeling tired or having little energy: nearly every day 5. Poor appetite or overeating: not at all 6. Feeling bad about yourself - or that you are a failure or have let yourself or your family down: not at all 7. Trouble concentrating on things, such as reading the newspaper or watching television: nearly every day 8. Moving or speaking so slowly that other people could have noticed. Or the opposite - being so fidgety or restless that you have been moving around a lot more than usual: not at all 9. Thoughts that you would be better off or of hurting yourself in some way: not at all Total score: 13 Depression Screening Interpretation: Positive Depression Screening Follow-up: New Medication prescribed Depression Screening Done: Yes 65556 - PHQ-9 Billing: Yes Source: Developed by Drs. Osmel Prakash, Laura Waddell, Nigel Royal and colleagues, with an educational ina from [employer]. Thrive Questionnaire Date Thrive assessed: 11/30/23 DAYANA-7 AMB Questionnaire DAYANA-7 Date DAYANA - 7 assessed: 03/12/24 Feeling nervous, anxious, or on edge: 0 = Not at all Not being able to stop or control worryin = Not at all Worrying too much about different things: 0 = Not at all Trouble relaxin = Nearly every day Being so restless that it is hard to sit still: 0 = Not at all Becoming easily annoyed or irritable: 2 = More than half the days Feeling afraid as if something awful might happen: 2 = More than half the days Total DAYANA-7 score (0-4 normal; 5-9 mild; 10-14 moderate; 15-21 severe): 7 Source: Developed by Drs. Osmel Prakash, Laura Waddell, Nigel Royal and colleagues, with an educational ina from [employer]. DAYANA-7 Assessment Billing DAYANA-7 Assessment Tool: DAYANA-7 Assessment 63125 Review of Systems Const Denies chills, Denies fatigue, Denies fever(s), Denies headache(s) and Denies weakness ENT Denies dizziness and Denies headache(s) Card Denies dyspnea Resp Denies cough, Denies dyspnea, Denies wheezing and Denies other (shortness of breath) Musc Denies numbness and Denies tingling Neuro Denies dizziness, Denies headache(s), Denies numbness, Denies tingling and Denies weakness Psych Reports anxiety and Reports depression Endo Denies fatigue Aller/Immun Denies wheezing Physical exam (Primary Care) Vital Signs: Last Vital Signs Pulse 81 03/12/24 09:01 BP 120/62 03/12/24 09:01 Pulse Ox 98 03/12/24 09:01 Oxygen Delivery Method Room Air 03/12/24 09:01 BMI result Body Mass Index 22.9 Tobacco/Smoking Status: Tobacco use Status Tobacco use date assessed 02/01/24 03/12/24 09:02 Patient Tobacco Use Status Never used Tobacco 03/12/24 09:02 e-Cigarette/Vaping Use Never Used 03/12/24 09:02 PHQ-9: PHQ-9 Score PHQ-9: Total score 13 03/12/24 09:10 Depression Screening Interpretation: Positive Depression Screening Follow-up: New Medication prescribed Thrive Assessment: Date of Thrive Assessment Date Thrive assessed 11/30/23 03/12/24 09:02 Const General: well developed; No acute distress Nutritional Appearance: well nourished Orientation/consciousness: patient oriented x3 HENMT Head: Yes normocephalic and Yes atraumatic Eyes General: appearance normal, both eyes and all related structures Pupils: Equal, round and reactive pupils present EOM: EOMs intact bilaterally Resp Effort & Inspection: normal respiratory effort Neuro General: patient oriented x3 and gait normal Cranial nerves: Yes Equal, round and reactive pupils present Psych Affect: normal affect Assessment and Plan Assessment & Plan (1) Depression with anxiety: Code(s): F41.8 - Other specified anxiety disorders Plan: Still?has?significant?depression?and?anxiety?is?slightly?improved?but?still?spikes?through?this. He?would?like?to?try?citalopram?along?with?bupropion Also?briefly?discussed?that?a?2nd?line?medication?could?be?added?for?spikes?of?anxiety?but?he?declines?this?for?now. He?has?declined?a?therapist Will?follow-up?in?3-4?weeks (2) Elevated ALT measurement: Code(s): R74.01 - Elevation of levels of liver transaminase levels Plan: Had?ordered?an?ultrasound?but?this?is?not?read?yet We?can?follow-up?at?his?next?appointment.??Will?call?for?any?immediate?action?required. Medications: New citalopram 20 mg PO DAILY 90 days 90 tabs 2RF Coding Level of Care Code Est Pt Level 3 (55640) Diagnoses Depression with anxiety F41.8 Elevated ALT measurement R74.01 Additional Codes DAYANA-7 Assessment Billing - DAYANA-7 Assessment Tool: DAYANA-7 Assessment 61697 ([id number])
== END 2024-03-12 09:35 | disposition home or self-care (01) ==
PROVIDERS: PCP Family Medicine; Visit Provider Family Medicine
DX: F41.8 Other specified anxiety disorders (principal); R74.01 Elevation of levels of liver transaminase levels
CPT/HCPCS: 96127; 99213

== ENCOUNTER 2024-04-18 09:36 | Outpatient (AMB) | payer BC, SELFPAY ==
[2024-04-18 09:48] VITALS: BP 104/70; PULSE 78; RESP 14; TEMP 36.6; O2SAT 99; BMI 23.0
--- NOTE | 2024-04-18 09:48 | A.OFFPC_ITS ---
Vital Signs 04/18/24 09:48 Height 5 ft 7 in Weight 147 lb BMI 23.0 BP 104/70 Blood Pressure Location Rt brachial Position Sitting Respiration 14 Pulse 78 Pulse Source Pulse Oximeter Temp 97.8 F Temp Source Temporal Artery Scan Pulse Oximetry (%) 99 Oxygen Delivery Method Room Air Intake Visit Reasons: 1m f/u depression/anxiety Pancake Professional Required: No Accompanied by: Self / Same As Patient Allergies Fish Containing Products Allergy (Verified 04/18/24 09:56) broke out in hives shellfish derived Allergy (Verified 04/18/24 09:56) food piosining, vomiting, diarrhea Medication List - Last Reconciled 04/18/24 by Garrett Hope MD betamethasone dipropionate 0.05% 1 appl topical BID PRN 30 days bupropion HCl 75 mg PO BID 30 days citalopram 20 mg PO DAILY 90 days loratadine (Allergy Relief (loratadine)) 10 mg PO DAILY triamcinolone acetonide (Nasacort) 1 spray intranasal DAILY Tobacco use date assessed: 02/01/24 Dental Screening Dental Screen Date: 12/21/23 HPI 1m f/u depression/anxiety HPI Details 28 y/o male presents to f/u anxiety & de pression. Had added citalopram and continued his bupropion. Had also ordered a liver enzyme ultrasound. Ultrasound showed no abnormality. Liver stiffness 1.48 m/s. PHQ-9 3, DAYANA-7 4 today. HPI Comments History of Present Illness Details Documentation assistance for Garrett Hope MD, was provided by Elliot Eastman,? Artist Blacksmith on 04/18/2024 at 10:05 AM CHRISTINA. I, Dr. Hope, have read, observed, and verified documentation. [facility] Medical History No pertinent past medical history Surgical History Hx of tonsillectomy Family History Mother Celiac disease Father Heart attack Other Mental health disorder Substance abuse Social History Household Members: Significant Other Both parents involved: No Caregiver staying overnight: No Housing: House Are you a primary career technical supervisor to a significant other at home: No Do you presently have visiting nurse or other home services: No 75 years or older and lives alone: No Alcohol intake: never Patient Tobacco Use Status: Never used Tobacco e-Cigarette/Vaping Use: Never Used Special ahsan needs: No Agree to transfusion: Yes service: No Current occupational status: employed 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 Cognitive needs: No Hearing needs: No Vision needs: No Questionnaire PHQ-9 Over the last 2 weeks, how often have you been bothered by any of the following problems? 1. Little interest or pleasure in doing things: not at all 2. Feeling down, depressed, or hopeless: not at all 3. Trouble falling or staying asleep, or sleeping too much: several days 4. Feeling tired or having little energy: not at all 5. Poor appetite or overeating: not at all 6. Feeling bad about yourself - or that you are a failure or have let yourself or your family down: not at all 7. Trouble concentrating on things, such as reading the newspaper or watching television: more than half the days 8. Moving or speaking so slowly that other people could have noticed. Or the opposite - being so fidgety or restless that you have been moving around a lot more than usual: not at all 9. Thoughts that you would be better off or of hurting yourself in some way: not at all Total score: 3 Depression Screening Interpretation: Negative Depression Screening Done: Yes 52238 - PHQ-9 Billing: Yes Source: Developed by Drs. Osmel Prakash, Laura Waddell, Nigel Royal and colleagues, with an educational ina from [employer]. Thrive Questionnaire Date Thrive assessed: 11/30/23 DAYANA-7 AMB Questionnaire DAYANA-7 Date DAYANA - 7 assessed: 04/18/24 Feeling nervous, anxious, or on edge: 1 = Several days Not being able to stop or control worryin = Not at all Worrying too much about different things: 0 = Not at all Trouble relaxin = Several days Being so restless that it is hard to sit still: 0 = Not at all Becoming easily annoyed or irritable: 1 = Several days Feeling afraid as if something awful might happen: 1 = Several days Total DAYANA-7 score (0-4 normal; 5-9 mild; 10-14 moderate; 15-21 severe): 4 Source: Developed by Drs. Osmel Prakash, Laura Waddell, Nigel Royal and colleagues, with an educational ina from [employer]. DAYANA-7 Assessment Billing DAYANA-7 Assessment Tool: DAYANA-7 Assessment 40552 Review of Systems Const Denies chills, Denies fatigue, Denies fever(s), Denies headache(s) and Denies weakness ENT Denies dizziness and Denies headache(s) Card Denies dyspnea Resp Denies cough, Denies dyspnea, Denies wheezing and Denies other (shortness of breath) Musc Denies numbness and Denies tingling Neuro Denies dizziness, Denies headache(s), Denies numbness, Denies tingling and Denies weakness Psych Denies anxiety and Denies depression Endo Denies fatigue Aller/Immun Denies wheezing Physical exam (Primary Care) Vital Signs: Last Vital Signs Temp 97.8 F 04/18/24 09:48 Pulse 78 04/18/24 09:48 Resp 14 04/18/24 09:48 BP 104/70 04/18/24 09:48 Pulse Ox 99 04/18/24 09:48 Oxygen Delivery Method Room Air 04/18/24 09:48 BMI result Body Mass Index 23.0 Tobacco/Smoking Status: Tobacco use Status Tobacco use date assessed 02/01/24 04/18/24 09:53 Patient Tobacco Use Status Never used Tobacco 04/18/24 09:53 e-Cigarette/Vaping Use Never Used 04/18/24 09:53 PHQ-9: PHQ-9 Score PHQ-9: Total score 3 04/18/24 10:05 Depression Screening Interpretation: Negative Thrive Assessment: Date of Thrive Assessment Date Thrive assessed 11/30/23 04/18/24 09:53 Const General: well developed; No acute distress Nutritional Appearance: well nourished Orientation/consciousness: patient oriented x3 HENMT Head: Yes normocephalic and Yes atraumatic Eyes General: appearance normal, both eyes and all related structures Pupils: Equal, round and reactive pupils present EOM: EOMs intact bilaterally Resp Effort & Inspection: normal respiratory effort Neuro General: patient oriented x3 and gait normal Cranial nerves: Yes Equal, round and reactive pupils present Psych Affect: normal affect Assessment and Plan Assessment & Plan (1) Depression with anxiety: Code(s): F41.8 - Other specified anxiety disorders Plan: Much?improved?on?combination?of?citalopram?and?bupropion Had?been?on?bupropion?alone?previously?and?this?was?not?helping?as?much. He?will?continue?on?this?combination. Subsequently?we?can?consider?decreasing?or?withdrawing?bupropion (2) Elevated ALT measurement: Code(s): R74.01 - Elevation of levels of liver transaminase levels Plan: ALT?had?been?mildly?elevated?and?a?abdominal?ultrasound?shows?normal?liver?echog enicity?without?masses?and?no?fibrosis. Unclear?cause Patient?does?not?drink?or?use?excessive?Tylenol.??Hepatitis?labs?were?negative Will?repeat?liver?enzymes?and?if?they?continue?to?be?elevated,?will?refer?to?GI (3) Allergies: Code(s): T78.40XA - Allergy, unspecified, initial encounter Plan: History?of?some?allergies?and?he?notes?some?swelling?in?his?hands?when?he?is?hik ing Continue?using?a?daytime?antihistamine Hydrate?well? (4) Twitching: Code(s): R25.3 - Fasciculation Plan: Patient?notes?ongoing?twitching?or?tremor No?family?history?of?tremors. Referred?to?neurology Orders: Orders Comprehensive Met. Panel Today R74.01 - Elevation of levels of liver transaminase levels TSH reflex Free T4 Today R25.3 - Fasciculation, Z00.00 - Encounter for general adult medical examination without abnormal findings Referrals Neurology Referral R25.1 - Tremor, unspecified, R25.3 - Fasciculation Coding Level of Care Code Est Pt Level 4 (86863) Diagnoses Depression with anxiety F41.8 Elevated ALT measurement R74.01 Allergies T78.40XA Twitching R25.3 Additional Codes DAYANA-7 Assessment Billing - DAYANA-7 Assessment Tool: DAYANA-7 Assessment [id number] ([id number])
== END 2024-04-18 10:22 | disposition home or self-care (01) ==
PROVIDERS: PCP Family Medicine; Visit Provider Family Medicine
DX: R74.01 Elevation of levels of liver transaminase levels (principal); F41.8 Other specified anxiety disorders; T78.40XA Allergy, unspecified, initial encounter; R25.3 Fasciculation
CPT/HCPCS: 99214

== ENCOUNTER 2024-07-19 08:25 | Outpatient (REF) | payer BC, SELFPAY ==
[2024-07-19 12:06] LABS: Alanine Aminotransferase 52 U/L (0-40); Albumin Level 4.2 g/dL (3.5-5.0); Alkaline Phosphatase 57 U/L (39-117); Anion Gap 10 (12-20); Aspartate Amino Transferase 34 U/L (5-37); Bilirubin Total 0.3 mg/dL (0.0-1.0); Blood Urea Nitrogen 12 mg/dL (9-16); Calcium 9.3 mg/dL (8.4-10.2); Carbon Dioxide 30 mmol/L (22-29); Chloride 104 mmol/L (96-108); Estimated Glomerular Filt Rate > 60; Glucose Random 86 mg/dL (60-115); Sodium 140 mmol/L (135-145); Total Protein 6.6 g/dL (6.5-8.0)
[2024-07-19 12:11] LABS: TSH reflex Free T4 1.54 uIU/mL (0.32-4.0)
== END 2024-07-19 08:26 | disposition home or self-care (01) ==
LOC: HO.WFDLDS 08:25
PROVIDERS: Visit Provider Family Medicine
DX: Z00.00 Encounter for general adult medical examination without abnormal findings (principal); R25.3 Fasciculation; R74.01 Elevation of levels of liver transaminase levels
CPT/HCPCS: 36415; 80053; 84443

== ENCOUNTER 2024-07-24 08:28 | Outpatient (AMB) | payer BC, SELFPAY ==
--- NOTE | 2024-07-24 08:39 | MHC.PC.OV ---
Vital Signs 07/24/24 08:41 Height 5 ft 7 in Weight 144 lb 8 oz BMI 22.6 BP 99/59 L Blood Pressure Location Lt brachial Position Sitting Respiration 14 Pulse 79 Pulse Source Pulse Oximeter Temp 98.1 F Temp Source Temporal Artery Scan Pulse Oximetry (%) 100 Oxygen Delivery Method Room Air Intake Visit Reasons: f/u elevated liver enzymes Intake Note: f/u for lab results Allergies Fish Containing Products Allergy (Verified 07/24/24 08:40) broke out in hives shellfish derived Allergy (Verified 07/24/24 08:40) food piosining, vomiting, diarrhea Tobacco use date assessed: 02/01/24 Dental Screening Dental Screen Date: 12/21/23 HPI f/u elevated liver enzymes HPI Details 28 y/o male presents to f/u elevated liver enzymes. Labs drawn 07/19/24. Reviewed labs with pt. Ongoing elevated ALT of 52. HPI Comments History of Present Illness Details Documentation assistance for Garrett Hope MD, was provided by Elliot Eastman, Stone [employer] on 07/24/2024 at 9:05 AM EST. I, Dr. Hope, have read, observed, and verified documentation. [facility] Medical History No pertinent past medical history Surgical History Hx of tonsillectomy Family History Mother Celiac disease Father Heart attack Other Mental health disorder Substance abuse Social History Household Members: Significant Other Both parents involved: No Caregiver staying overnight: No Housing: House Are you a primary insurance healthcare representative to a significant other at home: No Do you presently have visiting nurse or other home services: No 75 years or older and lives alone: No Alcohol intake: never Patient Tobacco Use Status: Never used Tobacco e-Cigarette/Vaping Use: Never Used Special ahsan needs: No Agree to transfusion: Yes service: No Current occupational status: employed 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 Cognitive needs: No Hearing needs: No Vision needs: No Questionnaire Thrive Questionnaire Date Thrive assessed: 11/30/23 DAYANA-7 AMB Questionnaire DAYANA-7 Date DAYANA - 7 assessed: 04/18/24 Source: Developed by Drs. Osmel Prakash, Laura Waddell, Nigel Royal and colleagues, with an educational ina from [facility]. Review of Systems Const Denies chills, Denies fatigue, Denies fever(s), Denies headache(s) and Denies weakness ENT Denies dizziness and Denies headache(s) Card Denies dyspnea Resp Denies cough, Denies dyspnea, Denies wheezing and Denies other (shortness of breath) Musc Denies numbness and Denies tingling Neuro Denies dizziness, Denies headache(s), Denies numbness, Denies tingling and Denies weakness Psych Denies anxiety and Denies depression Endo Denies fatigue Aller/Immun Denies wheezing Physical exam (Primary Care) Vital Signs: Last Vital Signs Temp 98.1 F 07/24/24 08:41 Pulse 79 07/24/24 08:41 Resp 14 07/24/24 08:41 BP 99/59 L 07/24/24 08:41 Pulse Ox 100 07/24/24 08:41 Oxygen Delivery Method Room Air 07/24/24 08:41 BMI result Body Mass Index 22.6 Tobacco/Smoking Status: Tobacco use Status Tobacco use date assessed 02/01/24 07/24/24 08:43 Patient Tobacco Use Status Never used Tobacco 07/24/24 08:43 e-Cigarette/Vaping Use Never Used 07/24/24 08:43 Thrive Assessment: Date of Thrive Assessment Date Thrive assessed 11/30/23 07/24/24 08:43 Const General: well developed; No acute distress Nutritional Appearance: well nourished Orientation/consciousness: patient oriented x3 [facility]: Yes normocephalic and Yes atraumatic Eyes General: appearance normal, both eyes and all related structures Pupils: Equal, round and reactive pupils present EOM: EOMs intact bilaterally Resp Effort & Inspection: normal respiratory effort Auscultation: clear to auscultation bilaterally Cardio Rate: regular rate Rhythm: regular rhythm Heart sounds: S1 normal heart sound present, S2 normal heart sound present, no gallops, no murmurs and no rubs Neuro General: patient oriented x3 and gait normal Cranial nerves: Yes Equal, round and reactive pupils present Psych Affect: normal affect Coding Level of Care Code Est Pt Level 3 (44187) Diagnoses Elevated ALT measurement R74.01 Assessment & Plan Assessment & Plan (1) Elevated ALT measurement: Code(s): R74.01 - Elevation of levels of liver transaminase levels Category: Medical Plan: But?persistent?elevation?in?ALT. Referred?to?Gastroenterology Orders: Orders Comprehensive Edwards. Panel Fast 6 Months R74.01 - Elevation of levels of liver transaminase levels, Z00.00 - Encounter for general adult medical examination without abnormal findings TSH reflex Free T4 6 Months R74.01 - Elevation of levels of liver transaminase levels, Z00.00 - Encounter for general adult medical examination without abnormal findings UA and rflx microscopic 6 Months R74.01 - Elevation of levels of liver transaminase levels, Z00.00 - Encounter for general adult medical examination without abnormal findings Complete Blood Count Auto Diff 6 Months R74.01 - Elevation of levels of liver transaminase levels, Z00.00 - Encounter for general adult medical examination without abnormal findings Lipid Panel 6 Months R74.01 - Elevation of levels of liver transaminase levels, Z00.00 - Encounter for general adult medical examination without abnormal findings Microalbumin, Random (w Creat) 6 Months I10 - Essential (primary) hypertension, R74.01 - Elevation of levels of liver transaminase levels Referrals Gastroenterology Referral R74.01 - Elevation of levels of liver transaminase levels
[2024-07-24 08:41] VITALS: BP 99/59; PULSE 79; RESP 14; TEMP 36.7; O2SAT 100; BMI 22.6
== END 2024-07-24 09:07 | disposition home or self-care (01) ==
PROVIDERS: PCP Family Medicine; Visit Provider Family Medicine
DX: R74.01 Elevation of levels of liver transaminase levels (principal)

== ENCOUNTER → 2024-07-24 08:28 | Outpatient (BNVA) | payer BC, SELFPAY | PROVIDERS: PCP Family Medicine; Visit Provider Family Medicine ==

== ENCOUNTER 2024-11-05 12:46 | Outpatient (AMB) | payer BC, SELFPAY ==
[2024-11-05 13:03] VITALS: BP 115/78; BMI 22.7
--- NOTE | 2024-11-05 13:03 | MHC.OFFVIS ---
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 He also noticed painful muscle cramps in his calf once every 3 mths and usually wakes him form sleep. He does not have twitches or cramps when he is moving. The cramps can wake him up form sleep but not twitches. He denies any sensory symptoms , creepy crawly sensations. He denies any back or neck pain. He used to be obese 200 lbs but for past 3 years he lost about 70 lbs through calorie restriction. He does not feel rested in the morning inspite of 6-8 hrs of sleep.He denies snoring. [facility] Medical History Asthma Seasonal allergies No pertinent past medical history Surgical History Hx of tonsillectomy Family History Mother Celiac disease Father Heart attack Other Mental health disorder Substance abuse Social History Household Members: Significant Other Both parents involved: No Caregiver staying overnight: No Housing: House Are you a primary managed care analyst to a significant other at home: No Do you presently have visiting nurse or other home services: No 75 years or older and lives alone: No Alcohol intake: never Patient Tobacco Use Status: Never used Tobacco e-Cigarette/Vaping Use: Never Used Special ahsan needs: No Agree to transfusion: Yes service: No Current occupational status: employed 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 Cognitive needs: No Hearing needs: No Vision needs: No Physical Exam Vital Signs: Last Vital Signs BP 115/78 11/05/24 13:03 BMI result Body Mass Index 22.7 Const General: cooperative, healthy appearing, comfortable and no acute distress Nutritional Appearance: average body habitus Orientation/consciousness: patient oriented x3 Eyes Pupils: Equal, round and reactive pupils present Neuro General: patient oriented x3, gait normal, tone normal, moves all extremities and no focal motor deficits Cranial nerves: Yes Facial sensation intact/muscles of mastication intact, Yes Equal, round and reactive pupils present, Yes Bilaterally intact EOM present, Yes Nystagmus not present, Yes Normal facial strength present and Yes Midline tongue present Cognition (Neuro): normal cognition Gait exam (Neuro): Normal gait present Motor exam (neuro): 5/5 motor strength present throughout and Normal motor muscle tone present throughout Deep tendon reflexes (DTR's): Right triceps reflex intensity grade: 1+, Left triceps reflex intensity grade: 1+, Rt Biceps (C5, C6): 1+, Left biceps reflex intensity grade: 1+, Right brachioradialis reflex intensity grade: 1+, Left brachioradialis reflex intensity grade: 1+, Right patellar reflex intensity grade: 1+ and Left patellar reflex intensity grade: 1+ Coordination: [id number] test normal Psych Appearance: grossly normal Assessment & Plan Assessment & Plan (1) Muscle cramps: Comment: Twitching ? periodic limb movements ? restless legs related to nutritional deficiency Code(s): R25.2 - Cramp and spasm Category: Medical (2) Hypersomnia: Code(s): G47.10 - Hypersomnia, unspecified Category: Medical Plan Reviewed labs I will check his Ferritin Vit D and B 12 levels Home sleep test to r/o sleep apnea Suggested magnesium glycinate 250mg qhs Orders: Orders Vitamin B12 and Folate Today G47.10 - Hypersomnia, unspecified, R25.2 - Cramp and spasm Vitamin D 25-OH (D2 and D3) Today G47.10 - Hypersomnia, unspecified, R25.2 - Cramp and spasm Ferritin Today G47.10 - Hypersomnia, unspecified, R25.2 - Cramp and spasm RT home sleep study Today G47.10 - Hypersomnia, unspecified, R25.2 - Cramp and spasm Coding Level of Care Code New Pt Level 4 (65701) Complex EM visit Add On G2211 Diagnoses Muscle cramps R25.2 Hypersomnia G47.10
--- OUTSIDE RECORDS SUMMARY | 2024-11-05 17:27 | XMS_ITS | Clinical Summary ---
Author Organization [facility] it Address [address] [place] [address] Care Team Providers Care Sales Merchandise Associate Name Role Phone Unavailable Primary Care Provider Unavailabl e Family History Medical History Relation Name Comments Alcohol abuse Brother Anxiety disorder Brother Depression Brother Drug abuse Brother Suicide Attempts Brother Alcohol abuse Father Alcohol abuse Mother Anxiety disorder Mother Depression Mother Bipolar disorder Mother's Sister Relation Name Status Comments Brother Father Mother Mother's Sister Social History Tobacco Use Types Packs/Day Years Used Date Smoking Tobacco: Never Smokeless Tobacco: Never Alcohol Use Standard Drinks/Week Comments Never 0 (1 standard drink = 0.6 oz pur e alcohol) Sex and Gender Information Value Date Recorded Sex Assigned at Not on file Gender Identity Not on file Sexual Orientation Not on file Obstetrics History Last Filed Vital Signs Vital Sign Reading Time Taken Comments Blood Pressure - - Pulse - - Temperature - - Respiratory Rate - - Oxygen Saturation - - Inhaled Oxygen Concentration - - Weight 61.2 kg (135 lb) 09/26/2023 3:34 PM EST Height 170.2 cm (5' 7 ) 09/26/2023 3:34 PM EST Body Mass Index 21.14 09/26/2023 3:34 PM EST Plan of Treatment Health Maintenance Due Date Last Done Comments DTaP,Tdap,and Td Vaccines (1 - Tdap) 2014 Hepatitis B Vaccines (1 of 3 - 19+ 3-dose series) 2014 Depression Screening 11/03/2023 HIV Screening 11/03/2023 Hepatitis C Screening 11/03/2023 Social Influencers of Health Screening 11/03/2023 COVID-19 Vaccine ( - 2023-2 5 season) 2024 Influenza Vaccine (#1) 2024 Cholesterol Screening (Lipid Panel) 09/28/2028 09/28/2023 HIB Vaccines Aged Out No longer eligi ble based on patient's age to complete this topic HPV Vaccines Aged Out No longer eligi ble based on patient's age to complete this topic Hepatitis A Vaccines Aged Out No long er eligible based on patient's age to complete this topic IPV Vaccines Aged Out No longer eligi ble based on patient's age to complete this topic MMR Vaccines Aged Out No longer eligi ble based on patient's age to complete this topic Meningococcal ACWY Vaccine Aged Out N o longer eligible based on patient's age to complete this topic Pneumococcal Vaccine: Pediat rics (0 to 5 Years) and At-Risk Patients (6 to 64 Years) Aged Out No longer eligi ble based on patient's age to complete this topic RSV Immunization Patients Un ping 20 months Aged Out No longer eligible b ased on patient's age to complete this topic Varicella Vaccines Aged Out No longer eligible based on patient's age to complete this topic
--- OUTSIDE RECORDS SUMMARY | 2024-11-05 17:27 | XMS_ITS | Clinical Summary ---
Author Organization [facility] Address [address] [place] [address] Care Team Providers Care Event Sales Representative Name Role Phone Unavailable Primary Care Provider Unavailabl e Allergies No known active allergies Medications No known medications Active Problems Problem Noted Date Diagnosed Date Anxiety and depression 09/26/2023 Encounter for long-term (current) use of other m edications 09/26/2023 Family History Medical History Relation Name Comments Alcohol abuse Brother Anxiety disorder Brother Depression Brother Drug abuse Brother Suicide Attempts Brother Alcohol abuse Father Bipolar disorder Maternal Aunt Alcohol abuse Mother Anxiety disorder Mother Depression Mother Relation Name Status Comments Brother Father Maternal Aunt Mother Social History Tobacco Use Types Packs/Day Years Used Date Smoking Tobacco: Never Smokeless Tobacco: Never Alcohol Use Standard Drinks/Week Comments Never 0 (1 standard drink = 0.6 oz pur e alcohol) Sex and Gender Information Value Date Recorded Sex Assigned at Not on file Gender Identity Not on file Sexual Orientation Not on file Job Start Date Occupation Industry Not on file Not on file Not on file Last Filed Vital Signs Vital Sign Reading [...] Health Maintenance Due Date Last Done Comments Hepatitis B Vaccines (1 of 3 - 3-dose series) 1995 Hepatitis C Screening 1995 COVID-19 Vaccine (#1) 05/15/1996 Depression Screening 2007 Preventative Health Evaluation 2013 DTap / Tdap / Td (1 - Tdap) 2014 Influenza Vaccine (#1) 2024 Pneumococcal Vaccine Aged Out No long er eligible based on patient's age to complete this topic RSV Ped < 20 months Aged Out No longe r eligible based on patient's age to complete this topic 19 [place] [id number] [facility] Self 1995 15 [address] [id number]
== END 2024-11-05 13:33 | disposition home or self-care (01) ==
PROVIDERS: PCP Family Medicine; Visit Provider Psychiatry & Neurology Neurology
DX: R25.2 Cramp and spasm (principal); G47.10 Hypersomnia, unspecified
CPT/HCPCS: 99204

== ENCOUNTER → 2024-11-05 12:46 | Outpatient (BNVA) | payer BC, SELFPAY | PROVIDERS: PCP Family Medicine; Visit Provider Psychiatry & Neurology Neurology ==

== ENCOUNTER 2024-11-08 09:42 | Outpatient (REF) | payer BC, SELFPAY ==
--- OUTSIDE RECORDS SUMMARY | 2024-11-08 12:44 | XMS_ITS | Clinical Summary ---
Author Organization [facility] Address [address] [place] [address] Care Team Providers Care Long Lines Operator Name Role Phone Unavailable Primary Care Provider [...] patient's age to complete this topic 19 [place] [id number] [facility] Self 1995 15 [place] [id number]
--- OUTSIDE RECORDS SUMMARY | 2024-11-08 12:44 | XMS_ITS | Clinical Summary ---
Author Organization [facility] it Address [address] [place] [address] Care Team Providers Care Blending Kettle Tender Name Role Phone Unavailable Primary Care Provider [...]
[2024-11-08 18:19] LABS: Ferritin 150 ng/mL (20-250)
[2024-11-08 18:56] LABS: Folate 6.1 ng/mL (> or = 4.0); Vitamin B12 448 pg/mL (200-900)
[2024-11-12 13:52] LABS: Vitamin D 25-OH, D2 <4 ng/mL; Vitamin D 25-OH, D3 8 ng/mL; Vitamin D 25-OH, Total 8 ng/mL (30-100)
== END 2024-11-08 09:43 | disposition home or self-care (01) ==
LOC: HO.HKASLDS 09:42
PROVIDERS: Visit Provider Psychiatry & Neurology Neurology
DX: R25.2 Cramp and spasm (principal); G47.10 Hypersomnia, unspecified
CPT/HCPCS: 36415; 82306; 82607; 82728; 82746

== ENCOUNTER → 2024-12-27 10:39 | Outpatient (REF) | payer BC, SELFPAY | LOC: HO.SL 10:39 | PROVIDERS: PCP Family Medicine; Visit Provider Psychiatry & Neurology Neurology | DX: G47.10 Hypersomnia, unspecified (principal); R25.2 Cramp and spasm | CPT/HCPCS: 95806 ==

== ENCOUNTER → 2024-12-27 10:49 | Outpatient (BNV) | payer BC, SELFPAY | PROVIDERS: PCP Family Medicine; Visit Provider Psychiatry & Neurology Neurology | DX: G47.10 Hypersomnia, unspecified (principal); R06.83 Snoring | CPT/HCPCS: 95806 ==

== ENCOUNTER 2025-01-03 07:56 | Outpatient (AMB) | payer BC, SELFPAY ==
--- OUTSIDE RECORDS SUMMARY | 2025-01-03 08:00 | XMS_ITS | Clinical Summary ---
Author Organization [facility] Address [address] [place] [address] Care Team Providers Care Spaghetti Machine Operator Name Role Phone Unavailable Primary Care [...] patient's age to complete this topic 19 [place] [id number] [facility] Self 1995 15 [place] [id number]
--- OUTSIDE RECORDS SUMMARY | 2025-01-03 08:00 | XMS_ITS | Clinical Summary ---
Author Organization [facility] it Address [address] [place] [address] Care Team Providers Care Owner Spa Director Name Role Phone Unavailable Primary Care Provider [...] Recorded Sex Assigned at Not on file Legal Sex Male 8:20 PM EST Gender Identity Not on file Sexual Orientation [...] Influencers of Health Screening 11/03/2023 COVID-19 Vaccine (1 - 2023-2 5 season) 2024 Influenza Vaccine [...] patient's age to complete this topic Meningococcal B Vacine Aged Out No lo nger eligible based on patient's age to complete [...]
[2025-01-03 08:02] VITALS: BP 116/70; PULSE 76; O2SAT 99; BMI 22.7
--- NOTE | 2025-01-03 08:02 | A.OFFVIS_ITS ---
Vital Signs 01/03/25 08:02 Height 5 ft 7 in Weight 145 lb 4 oz BMI 22.7 BP 116/70 Blood Pressure Location Lt brachial Position Sitting Pulse 76 Pulse Source Pulse Oximeter Pulse Oximetry (%) 99 Oxygen Delivery Method Room Air Intake Visit Reasons: 2m follow up Tremor Intake Note: Patient presents for 2 month follow up for tremors. Labs in chart/HST done 12/27 Allergies Seasonal Allergies Allergy (Mild, Verified 01/03/25 08:07) Unknown Fish Containing Products Allergy (Verified 01/03/25 08:07) broke out in hives shellfish derived Allergy (Verified 01/03/25 08:07) food piosining, vomiting, diarrhea HPI Comments Details: 28y/o Right handed male comes for evaluation of muscle twitching. About 3 years ago he started noticing twitching in his legs at rest, mostly in the later part of the day and sometimes in upper extremities. He also noticed painful muscle cramps in his calf once every 3 mths and usually wakes him form sleep. He does not have twitches or cramps when he is moving. The cramps can wake him up form sleep but not twitches. He denies any sensory symptoms , creepy crawly sensations. He denies any back or neck pain. He used to be obese 200 lbs but for past 3 years he lost about 70 lbs through calorie restriction in the span of 1.5 years. He does not feel rested in the morning inspite of 6-8 hrs of sleep.He denies snoring. He eats a well balanced diet, has allergies to fish. He denies morning headaches, 2 years ago he did have a concussion, due to hitting the l. side of his head, denied loc, vision changes or vomiting. His f/h consists of sister who has Chron's disease and dad passed at 56 d/t an [place]. He does not smoke, drink alcohol or do gummies. HST is pending. [facility] Medical History Muscle cramps Hypersomnia Asthma Seasonal allergies No pertinent past medical history Surgical History Hx of tonsillectomy Family History Mother Celiac disease Father Heart attack Other Mental health disorder Substance abuse Social History Household Members: Significant Other Both parents involved: No Caregiver staying overnight: No Housing: House Are you a primary care advocate to a significant other at home: No Do you presently have visiting nurse or other home services: No 75 years or older and lives alone: No Alcohol intake: never Patient Tobacco Use Status: Never used Tobacco e-Cigarette/Vaping Use: Never Used Special ahsan needs: No Agree to transfusion: Yes service: No Current occupational status: employed 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 Cognitive needs: No Hearing needs: No Vision needs: No Physical Exam Vital Signs: Last Vital Signs Pulse 76 01/03/25 08:02 BP 116/70 01/03/25 08:02 Pulse Ox 99 01/03/25 08:02 Oxygen Delivery Method Room Air 01/03/25 08:02 BMI result Body Mass Index 22.7 Const General: cooperative, healthy appearing, comfortable and no acute distress Nutritional Appearance: average body habitus Orientation/consciousness: patient oriented x3 Eyes Pupils: Equal, round and reactive pupils present Neuro General: patient oriented x3, gait normal, tone normal, moves all extremities and no focal motor deficits Cranial nerves: Yes Facial sensation intact/muscles of mastication intact, Yes Equal, round and reactive pupils present, Yes Bilaterally intact EOM present, Yes Nystagmus not present, Yes Normal facial strength present and Yes Midline tongue present Cognition (Neuro): normal cognition Gait exam (Neuro): Normal gait present Motor exam (neuro): 5/5 motor strength present throughout and Normal motor muscle tone present throughout Deep tendon reflexes (DTR's): Right triceps reflex intensity grade: 1+, Left triceps reflex intensity grade: 1+, Rt Biceps (C5, C6): 1+, Left biceps reflex intensity grade: 1+, Right brachioradialis reflex intensity grade: 1+, Left brachioradialis reflex intensity grade: 1+, Right patellar reflex intensity grade: 1+ and Left patellar reflex intensity grade: 1+ Coordination: [id number] test normal Psych Appearance: grossly normal Assessment & Plan Assessment & Plan (1) Muscle cramps: Comment: Twitching ? periodic limb movements ? restless legs related to nutritional deficiency Code(s): R25.2 - Cramp and spasm Category: Medical Plan Twitching / muscle spasms /Tremors - f/u most likely mineral or vitamin deficiencies. Start Magnesium 400mg PO daily at bedtime, may take one pill every other day if you have loose stools. H/O NAFLD due to obesity in the past, pt has lost 70 lbs in the last 1.5 years. ALT- are consistently elevated, despite eating a well balanced meal. U/S of liver was wnl. HST is pending. Medications: New magnesium oxide take one tablet by mouth daily at bedtime. 400 mg PO DAILY 30 tabs 2RF muscle cramps MDD 400mg PO R25.2 - Cramp and spasm Patient Instructions: Sleep Hygiene provided: set a scheduled bedtime and wake time to help regulate the circadian rhythm and balance the release of pituitary hormones. Sleep in a dark room, temperatures below 68 degrees, and no devices n bed. Limit caffeinated products 6 hours prior to bed, and limit fluids 2-4 hours prior to bed. Gentle night yoga, diffusing essential oils, and playing soft music can be relaxing. Tremors- like twitching and muscle spasms, can be due to electrolyte imbalances, NAFLD with the recent loss of weight 70lbs. Start magnesium 400 mg PO daily at night. Tipple Repairer? in future? Coding Level of Care Code Est Pt Level 4 (72278) Diagnoses Muscle cramps R25.2 Time Spent (min) 30 Comment Improving
== END 2025-01-03 08:54 | disposition home or self-care (01) ==
LOC: HO.HSMS 07:57
PROVIDERS: PCP Family Medicine; Visit Provider Physician Assistant Medical
DX: R25.2 Cramp and spasm (principal)
CPT/HCPCS: 99214

== ENCOUNTER → 2025-01-03 07:56 | Outpatient (BNVA) | payer BC, SELFPAY | PROVIDERS: PCP Family Medicine; Visit Provider Physician Assistant Medical | DX: G47.10 Hypersomnia, unspecified (principal); R25.2 Cramp and spasm ==

== ENCOUNTER 2025-03-05 08:52 | Outpatient (AMB) | payer BC, SELFPAY ==
[2025-03-05 08:54] VITALS: BP 110/62; PULSE 78; O2SAT 99; BMI 22.9
--- NOTE | 2025-03-05 08:54 | A.OFFVIS_ITS ---
Vital Signs 03/05/25 08:54 Height 5 ft 7 in Weight 146 lb BMI 22.9 BP 110/62 Blood Pressure Location Lt brachial Position Sitting Pulse 78 Pulse Source Pulse Oximeter Pulse Oximetry (%) 99 Oxygen Delivery Method Room Air Intake Visit Reasons: 2 mo follow up Intake Note: Patient presents follow up Muscle Spasms medication. Allergies Seasonal Allergies Allergy (Mild, Verified 03/05/25 08:58) Unknown Fish Containing Products Allergy (Verified 03/05/25 08:58) broke out in hives shellfish derived Allergy (Verified 03/05/25 08:58) food piosining, vomiting, diarrhea HPI Comments Details: 29y/o right handed male comes for evaluation of muscle twitching. About 3 years ago he started noticing twitching in his legs at rest, mostly notices it in the latter part of the day and sometimes in upper extremities. He also noticed painful muscle cramps in his calf once every 3mos and usually wakes him from sleep. He does not have twitches or cramps when he is moving. The cramps are so severe they wake him up from sleep but not twitches. 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 RLS He denies any sensory symptoms, creepy crawly sensations. He denies any back or neck pain. He does notice twitching LE>UE. He used to be obese 200 lbs but for past 3 years he lost about 70 lbs through caloric restriction in the span of 1.5 years. He does not feel rested in the morning inspite of 6-8 hrs of sleep. He denies snoring. He eats a well balanced diet, has allergies to fish. He denies morning headaches, 2 years ago he did have a concussion, due to hitting the l. side of his head, denied loc, vision changes or vomiting. His f/h consists of sister who had a seizure at the 14 years of age and Chron's disease. His dad passed at 56 d/t an [place]. Mom is alive. His tells him he is disorganized, loses things, and he may have ADHD. He has anxiety and depression, well managed with citalopram and wellbutrin. He does not smoke, drink alcohol or do gummies. [facility] Medical History Muscle cramps Hypersomnia Asthma Seasonal allergies No pertinent past medical history Surgical History Hx of tonsillectomy Family History Mother Celiac disease Father Heart attack Other Mental health disorder Substance abuse Social History Household Members: Significant Other Both parents involved: No Caregiver staying overnight: No Housing: House Are you a primary resident care director to a significant other at home: No Do you presently have visiting nurse or other home services: No 75 years or older and lives alone: No Alcohol intake: never Patient Tobacco Use Status: Never used Tobacco e-Cigarette/Vaping Use: Never Used Special ahsan needs: No Agree to transfusion: Yes service: No Current occupational status: employed 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 Cognitive needs: No Hearing needs: No Vision needs: No Physical Exam Vital Signs: Last Vital Signs Pulse 78 03/05/25 08:54 BP 110/62 03/05/25 08:54 Pulse Ox 99 03/05/25 08:54 Oxygen Delivery Method Room Air 03/05/25 08:54 BMI result Body Mass Index 22.9 Const General: cooperative, comfortable and no acute distress Nutritional Appearance: average body habitus Orientation/consciousness: patient oriented x3 HEENT Face and sinus: Yes normal facial exam and Yes face symmetric Eyes Pupils: Equal, round and reactive pupils present Resp Effort & Inspection: normal respiratory effort and able to speak in complete sentences Neuro General: patient oriented x3 and moves all extremities Cranial nerves: Yes Equal, round and reactive pupils present, Yes Normal accommodation reflex present, Yes Bilaterally intact EOM present, Yes Nystagmus not present, Yes Normal facial strength present, Yes Midline tongue present, Yes Ability to bilaterally rotate head present and Yes Ability to bilaterally elevate shoulders present Gait exam (Neuro): Normal gait present Motor exam (neuro): 5/5 motor strength present throughout, Pronator motor function not present, no tremor noted, Normal motor muscle tone present throughout and Motor abnormalities not present Deep tendon reflexes (DTR's): Right triceps reflex intensity grade: 1+, Left triceps reflex intensity grade: 1+, Rt Biceps (C5, C6): 1+, Left biceps reflex intensity grade: 1+, Right brachioradialis reflex intensity grade: 1+, Left brachioradialis reflex intensity grade: 1+, Right patellar reflex intensity grade: 1+, Left patellar reflex intensity grade: 1+, Right ankle reflex intensity grade: 1+ and Left ankle reflex intensity grade: 1+ Coordination: [id number] test normal Psych Appearance: grossly normal Attitude: cooperative Thought process: Normal thought process present Thought content: Normal thought content present Insight: Good insight present (Psych) Judgement: Good judgement present (Psych) Results Reviewed Results Reviewed: Labs reviewed with patient start vit D daily, as Vitamin D is insufficient. Assessment & Plan Assessment & Plan (1) Hypersomnia: Code(s): G47.10 - Hypersomnia, unspecified Category: Medical (2) Twitching: Code(s): R25.3 - Fasciculation Category: Medical (3) Muscle cramps: Comment: Twitching ? periodic limb movements ? restless legs related to nutritional deficiency? substance toxicity? tox screen? Code(s): R25.2 - Cramp and spasm Category: Medical (4) FHx: seizures: Comment: sister had a seizure at the age of 13 Code(s): Z84.89 - Family history of other specified conditions Category: Medical Plan Hypersomnia HST is pending. Labs WNL ferritin, folate, b12 TSH, Vitamin D insuff. start taking daily vitamin d -/check cbc-anemia, check B6 / Homocysteine/ MMA ALT is elevated, lost 70 lbs and his diet is clean. EEG Twitching / muscle spasms EEG r/o seizure disorder? After completion of labs, start B6 200mg daily LE >UE twitching, will consider NCS/EMG in future. Orders: Orders Homocysteine Today G47.10 - Hypersomnia, unspecified, G47.9 - Sleep disorder, unspecified, R25.2 - Cramp and spasm, R53.83 - Other fatigue Vitamin B12 Today G47.10 - Hypersomnia, unspecified, R25.2 - Cramp and spasm Magnesium Today G47.10 - Hypersomnia, unspecified, R25.2 - Cramp and spasm EEG electroencephalogram Today R25.3 - Fasciculation, Z84.89 - Family history of other specified conditions Complete Blood Count no Diff Today G47.10 - Hypersomnia, unspecified, R25.2 - Cramp and spasm Vitamin D 25-OH Total Today G47.10 - Hypersomnia, unspecified, R25.2 - Cramp and spasm Methylmalonic Acid Today G47.10 - Hypersomnia, unspecified, G47.9 - Sleep disorder, unspecified, R25.2 - Cramp and spasm, R53.83 - Other fatigue Patient Instructions: Sleep Hygiene provided: set a scheduled bedtime and wake time to help regulate the circadian rhythm and balance the release of pituitary hormones. Sleep in a dark room, temperatures below 68 degrees, and no devices n bed. Limit caffeinated products 6 hours prior to bed, and limit fluids 2-4 hours prior to bed. Gentle night yoga, diffusing essential oils, and playing soft music can be relaxing. Coding Level of Care Code Est Pt Level 4 (67912) Diagnoses Hypersomnia G47.10 Twitching R25.3 Muscle cramps R25.2 FHx: seizures Z84.89 Time Spent (min) 30
== END 2025-03-05 09:39 | disposition home or self-care (01) ==
LOC: HO.HSMS 08:52
PROVIDERS: PCP Family Medicine; Visit Provider Physician Assistant Medical
DX: G47.10 Hypersomnia, unspecified (principal); R25.3 Fasciculation; R25.2 Cramp and spasm; Z84.89 Family history of other specified conditions
CPT/HCPCS: 99214

== ENCOUNTER 2025-03-19 12:14 | Outpatient (REF) | payer BC, SELFPAY ==
[2025-03-19 18:18] LABS: Hematocrit 39.7 % (42.0-52.0); Mean Corpuscular HGB Conc 32.7 g/dl (31.0-36.0); Mean Corpuscular Hemoglobin 27.4 pg (27.0-33.0); Mean Corpuscular Volume 83.8 fL (80.0-98.0); Mean Platelet Volume 10.9 fL (9.4-12.4); Platelet Count 193 X10*3/uL (160-400); Red Blood Count 4.74 X10*6/uL (4.60-5.80); Red Cell Distribution Width 13.2 % (11.0-16.0); White Blood Count 3.3 X10*3/uL (4.8-10.8)
[2025-03-19 18:39] LABS: Magnesium 2.1 mg/dL (1.6-2.6)
[2025-03-19 18:47] LABS: Vitamin D 25-OH Total 96.7 ng/mL (>30)
[2025-03-19 18:58] LABS: Vitamin B12 645 pg/mL (200-900)
[2025-03-23 00:58] LABS: Methylmalonic Acid 153 nmol/L (55-335)
== END 2025-03-19 12:15 | disposition home or self-care (01) ==
LOC: HO.HKASLDS 12:14
PROVIDERS: Visit Provider Physician Assistant Medical
DX: R25.2 Cramp and spasm (principal); R53.83 Other fatigue; G47.9 Sleep disorder, unspecified; G47.10 Hypersomnia, unspecified
CPT/HCPCS: 36415; 82306; 82607; 83735; 83921; 85027

== ENCOUNTER 2025-04-11 09:51 | Outpatient (REF) | payer BC, SELFPAY ==
--- NOTE | 2025-04-11 09:54 | EEG_ITS ---
This is a 16 channel EEG with an EKG lead. Patient is reported awake during the tracing. Background EEG rhythm is low amplitude fast with no obvious asymmetry or paroxysmal tendency. Photic stimulation does not produce any significant abnormality. Hyperventilation is not performed due to patient's condition of asthma. No sharp wave spikes or paroxysmal tendencies noted. Some lead and muscle artifacts are noted. Cardiac lead does not reveal any significant abnormality. Impression: No significant abnormality noted on this EEG. MTDD
--- OUTSIDE RECORDS SUMMARY | 2025-04-11 10:26 | XMS_ITS | Clinical Summary ---
Author Organization [facility] Address [address] [place] [address] Care Team Providers Care Track Manager Name Role Phone Unavailable Primary Care Provider [...] Td (1 - Tdap) 2014 Influenza Vaccine (Season Ended) 2025 Pneumococcal Vaccine Aged Out No long er eligible based on patient's age to complete this topic RSV Ped < 20 months Aged Out No longe r eligible based on patient's age to complete this topic [address] [id number] [facility] Self 1995 [address] [id number]
--- OUTSIDE RECORDS SUMMARY | 2025-04-11 10:26 | XMS_ITS | Clinical Summary ---
Author Organization [facility] it Address [address] [place] [address] Care Team Providers Care Network Administrator Name Role Phone Unavailable Primary Care Provider [...] - 2023-2 5 season) 2024 Influenza Vaccine (Season Ended) 2025 Cholesterol Screening (Lipid Panel) 09/28/2028 09/28/2023 HIB [...] age to complete this topic Meningococcal B Vaccine Aged Out No l onger eligible based on patient's age to complete [...]
== END 2025-04-11 09:52 | disposition home or self-care (01) ==
LOC: HO.NEURO 09:51
PROVIDERS: PCP Family Medicine; Visit Provider Physician Assistant Medical
DX: R25.3 Fasciculation (principal); Z82.0 Family history of epilepsy and other diseases of the nervous system
CPT/HCPCS: 95816

== ENCOUNTER → 2025-04-11 09:51 | Outpatient (BNV) | payer BC, SELFPAY | PROVIDERS: PCP Family Medicine; Visit Provider Psychiatry & Neurology Neurology | DX: R25.3 Fasciculation (principal); Z84.89 Family history of other specified conditions | CPT/HCPCS: 95816 ==

== ENCOUNTER 2025-04-19 11:23 | Outpatient (REF) | payer BC, SELFPAY ==
--- OUTSIDE RECORDS SUMMARY | 2025-04-19 11:55 | XMS_ITS | Clinical Summary ---
Author Organization [facility] it Address [address] [place] [address] Care Team Providers Care Mesh Man Name Role Phone Unavailable Primary Care Provider [...] 2023-2 5 season) 2024 Influenza Vaccine (#1) 2025 Cholesterol Screening (Lipid Panel) 09/28/2028 09/28/2023 [...] 5 Years) and At-Risk Patients (6 to 49 Years) Aged Out No longer eligi ble based on patient's age to complete this topic RSV Immunization Patients Un ping 20 months Aged Out No longer eligible b ased on patient's age to complete this topic Varicella Vaccines Aged Out No longer eligible based on patient's age to complete this topic
--- OUTSIDE RECORDS SUMMARY | 2025-04-19 11:55 | XMS_ITS | Clinical Summary ---
Author Organization [facility] Address [address] [place] [address] Care Team Providers Care Expeller Operator Name Role Phone Unavailable Primary Care [...] (1 - Tdap) 2014 Influenza Vaccine (#1) 2025 Pneumococcal Vaccine Aged Out No long er eligible based on patient's age to complete this topic RSV Ped < 20 months Aged Out No longe r eligible based on patient's age to complete this topic [address] [id number] [facility] Self 1995 [address] [phone]
--- OUTSIDE RECORDS SUMMARY | 2025-04-19 11:55 | XMS_ITS ---
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
[2025-04-19 13:52] LABS: Appearance Urine Clear; Glucose Urine UA Negative (Negative); PH 6.0 (5.0-9.0); Specific Gravity - Urine 1.015 (1.005-1.025)
[2025-04-19 13:53] LABS: MANUAL DIFF FLAG NO
[2025-04-19 14:13] LABS: Hematocrit 39.1 % (42.0-52.0); Hemoglobin 12.9 g/dl (14.0-18.0); Imm Gran Abs Auto 0.01 X10*3/uL (0.00-0.03); Imm Gran Pct Auto 0.3 % (0.0-0.4); Lymphocytes Absolute Auto 1.0 X10*3/uL (1.2-4.9); Mean Corpuscular HGB Conc 33.0 g/dl (31.0-36.0); Mean Corpuscular Hemoglobin 27.3 pg (27.0-33.0); Mean Corpuscular Volume 82.7 fL (80.0-98.0); NRBC Abs Auto 0.000 X10*3/uL (0.0-0.012); NRBC Pct Auto 0.0 /100WBC (0.0-0.2); Platelet Count 201 X10*3/uL (160-400); Red Blood Count 4.73 X10*6/uL (4.60-5.80); White Blood Count 3.1 X10*3/uL (4.8-10.8)
[2025-04-19 14:41] LABS: Alanine Aminotransferase 54 U/L (0-40); Albumin Level 4.5 g/dL (3.5-5.0); Alkaline Phosphatase 50 U/L (39-117); Anion Gap 9 (12-20); Aspartate Amino Transferase 36 U/L (5-37); Blood Urea Nitrogen 14 mg/dL (9-16); Calcium 9.1 mg/dL (8.4-10.2); Carbon Dioxide 30 mmol/L (22-29); Chloride 104 mmol/L (96-108); Cholesterol 137 mg/dL (<200); Estimated Glomerular Filt Rate > 60; HDL Cholesterol 67 mg/dL (>40); Potassium 3.8 mmol/L (3.3-5.1); Sodium 139 mmol/L (135-145); Total Protein 6.7 g/dL (6.5-8.0); Triglycerides 36 mg/dL (<150)
== END 2025-04-19 11:24 | disposition home or self-care (01) ==
LOC: HO.HKASLDS 11:23
PROVIDERS: Physician Assistant Medical; Visit Provider Family Medicine
DX: Z00.00 Encounter for general adult medical examination without abnormal findings (principal); R53.83 Other fatigue; G47.9 Sleep disorder, unspecified; G47.10 Hypersomnia, unspecified; R25.2 Cramp and spasm; R74.01 Elevation of levels of liver transaminase levels; I10 Essential (primary) hypertension
CPT/HCPCS: 36415; 80053; 80061; 81003; 82043; 82570; 83090; 84443; 85025

== ENCOUNTER 2025-04-22 08:56 | Outpatient (AMB) | payer BC, SELFPAY ==
--- OUTSIDE RECORDS SUMMARY | 2025-04-22 09:10 | XMS_ITS | Clinical Summary ---
Author Organization [facility] it Address [address] [place] [address] Care Team Providers Care Senior Mechanical Development Engineer Name Role Phone Unavailable Primary Care Provider [...]
--- OUTSIDE RECORDS SUMMARY | 2025-04-22 09:10 | XMS_ITS | Clinical Summary ---
Author Organization [facility] Address [address] [place] [address] Care Team Providers Care Felt Washing Machine Tender Name Role Phone Unavailable Primary Care [...] patient's age to complete this topic [address] [id number] [facility] Self 1995 [address] [id number]
--- NOTE | 2025-04-22 09:16 | MHC.PC.OV ---
Vital Signs 04/22/25 09:21 Height 5 ft 7 in Weight 144 lb 6 oz BMI 22.6 BP 90/60 Blood Pressure Location Lt brachial Position Sitting Respiration 14 Pulse 77 Pulse Source Pulse Oximeter Temp 98 F Temp Source Oral Pulse Oximetry (%) 98 Oxygen Delivery Method Room Air Intake Visit Reasons: CPE with f/u labs and health maint. Intake Note: patient is schedule for a cpe Pointer Helper Required: No Allergies Seasonal Allergies Allergy (Mild, Verified 04/22/25 09:19) Unknown Fish Containing Products Allergy (Verified 04/22/25 09:19) broke out in hives shellfish derived Allergy (Verified 04/22/25 09:19) food piosining, vomiting, diarrhea Medication List - Last Reconciled 04/22/25 by Garrett Hope MD albuterol sulfate 90 mcg/actuation 1 inh inhalation QID betamethasone dipropionate 0.05% 1 appl topical BID PRN 30 days bupropion HCl 150 mg (2 x 75 mg) PO DAILY 90 days cholecalciferol (vitamin D3) 125 mcg PO QAM citalopram 20 mg PO DAILY 90 days ferrous sulfate 325 mg PO DAILY 90 days MDD 325mg PO loratadine (Allergy Relief (loratadine)) 10 mg PO DAILY mecobalamin (vitamin B12) 1,000 mcg sublingual BEDTIME MDD 1000mcg triamcinolone acetonide (Nasacort) 1 spray intranasal DAILY Tobacco use date assessed: 04/22/25 Dental Screening Dental Screen Date: 04/22/25 Did you have a dental visit in the last 12 months?: Yes Did you have a dental problem in the last 6 months where you did not have access to dental care?: No Was dental information given to patient?: Patient has dentist HPI CPE with f/u labs and health maint. HPI Details 29 y/o male presents for a CPE with f/u labs and health maint. Labs drawn 04/19/25. Reviewed labs with pt. Ongoing anemia. Elevated ALT of 54. Triglycerides 36. TC 137. LDL 63. HDL 67. PHQ-9 5, DAYANA-7 5 today. He feels he could increase his citalopram a bit. Pt reports difficulty concentrating. Denies any diagnosis of ADHD but notes diagnosis of dyslexia. HPI Comments History of Present Illness Details Documentation assistance for Garrett Hope MD, was provided by Elliot Eastman,? Supervisor [employer] on 04/22/2025 at 10:02 AM EST. I, Dr. Hope, have read, observed, and verified documentation. [facility] Medical History Muscle cramps Hypersomnia Asthma Seasonal allergies No pertinent past medical history Surgical History Hx of tonsillectomy Family History Mother Celiac disease Father Heart attack Other Mental health disorder Substance abuse Social History Household Members: Significant Other Both parents involved: No Caregiver staying overnight: No Housing: House Are you a primary nurse care manager to a significant other at home: No Do you presently have visiting nurse or other home services: No 75 years or older and lives alone: No Alcohol intake: never Patient Tobacco Use Status: Never used Tobacco e-Cigarette/Vaping Use: Never Used Special ahsan needs: No Agree to transfusion: Yes service: No Current occupational status: employed 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 Cognitive needs: No Hearing needs: No Vision needs: No Questionnaire PHQ-9 Over the last 2 weeks, how often have you been bothered by any of the following problems? 1. Little interest or pleasure in doing things: several days 2. Feeling down, depressed, or hopeless: several days 3. Trouble falling or staying asleep, or sleeping too much: more than half the days 4. Feeling tired or having little energy: several days 5. Poor appetite or overeating: not at all 6. Feeling bad about yourself - or that you are a failure or have let yourself or your family down: not at all 7. Trouble concentrating on things, such as reading the newspaper or watching television: not at all 8. Moving or speaking so slowly that other people could have noticed. Or the opposite - being so fidgety or restless that you have been moving around a lot more than usual: not at all 9. Thoughts that you would be better off or of hurting yourself in some way: not at all Total score: 5 Depression Screening Interpretation: Positive Depression Screening Follow-up: In treatment Depression Screening Done: Yes 08427 - PHQ-9 Billing: Yes Source: Developed by Laura Medina Kurt Kroenke and colleagues, with an educational ina from [employer] Thrive Questionnaire Date Thrive assessed: 11/30/23 I am a: Patient What is your living situation today?: I have a steady place to live Within the past 12 months, did the food you bought not last and you didn't have the money to get more?: Never true Within the past 12 months, did you worry whether your food would run out before you got money to buy more?: Never true Do you have trouble paying for medicines?: No Do you have trouble getting transportation to medical appointments?: No Do you have trouble paying your heating and electricity bill?: No Do you have trouble taking care of your child, family member or friend?: No Do you have trouble with day-to-day activities such as bathing, preparing meals, shopping, managing finances, etc.?: No Are you currently unemployed and looking for a job?: No Are you interested in more education?: No Please select the resources that you would like help with: None Currently or been in a relationship where the following occur: No concerns reported THRIVE Score: 0 AUDIT C Alcohol Use Questionnaire (AUDIT-C) 1. How often do you have a drink containing alcohol?: Never Total Score: 0 DAYANA-7 AMB Questionnaire DAYANA-7 Date DAYANA - 7 assessed: 04/18/24 Feeling nervous, anxious, or on edge: 1 = Several days Not being able to stop or control worryin = Several days Worrying too much about different things: 1 = Several days Trouble relaxin = Not at all Being so restless that it is hard to sit still: 0 = Not at all Becoming easily annoyed or irritable: 2 = More than half the days Feeling afraid as if something awful might happen: 0 = Not at all Total DAYANA-7 score (0-4 normal; 5-9 mild; 10-14 moderate; 15-21 severe): 5 Source: Developed by Laura Medina Kurt Kroenke and colleagues, with an educational ina from [employer] DAYANA-7 Assessment Billing DAYANA-7 Assessment Tool: DAYANA-7 Assessment 79620 Review of Systems Const Denies chills, Denies fatigue, Denies fever(s), Denies headache(s) and Denies weakness Eyes Denies change in vision ENT Denies dizziness, Denies headache(s), Denies hearing loss, Denies nasal congestion, Denies sinus pain, Denies sinus pressure and Denies sore throat Card Denies chest pain, Denies lightheadedness, Denies dyspnea and Denies other (palpitations) Resp Denies cough, Denies dyspnea and Denies wheezing GI Denies abdominal pain, Denies melena, Denies hematochezia, Denies change in bowel habits, Denies dyspepsia and Denies nausea Denies hematuria and Denies dysuria Musc Denies abnormal gait, Denies myalgias, Denies arthralgias, Denies numbness and Denies tingling Skin/Breast Denies rash, Denies unusual bruising and Denies wounds Neuro Denies abnormal gait, Denies dizziness, Denies headache(s), Denies memory loss, Denies numbness, Denies Sensory deficit (Neuro), Denies tingling and Denies weakness Psych Reports anxiety, Reports depression and Denies memory loss Endo Denies cold intolerance, Denies fatigue, Denies heat intolerance, Denies polydipsia and Denies polyuria Joo/Lymph Denies easy bleeding and Denies easy bruising Aller/Immun Denies wheezing Physical exam (Primary Care) Vital Signs: Last Vital Signs Temp 98 F 04/22/25 09:21 Pulse 77 04/22/25 09:21 Resp 14 04/22/25 09:21 BP 90/60 04/22/25 09:21 Pulse Ox 98 04/22/25 09:21 Oxygen Delivery Method Room Air 04/22/25 09:21 BMI result Body Mass Index 22.6 Tobacco/Smoking Status: Tobacco use Status Tobacco use date assessed 04/22/25 04/22/25 09:25 Patient Tobacco Use Status Never used Tobacco 04/22/25 09:18 e-Cigarette/Vaping Use Never Used 04/22/25 09:18 PHQ-9: PHQ-9 Score PHQ-9: Total score 5 04/22/25 10:02 Depression Screening Interpretation: Positive Depression Screening Follow-up: In treatment Thrive Assessment: Date of Thrive Assessment Date Thrive assessed 11/30/23 04/22/25 09:18 Currently or been in a relationship where the following occur: No concerns reported Const General: no acute distress, well developed, alert and awake Nutritional Appearance: well nourished Orientation/consciousness: patient oriented x3 [facility] Head: Yes normocephalic and Yes atraumatic Ears: hearing grossly normal bilaterally and TM's normal bilaterally General nose exam: Normal external nose present and Normal nares present Mouth: Normal oral and palatal mucosa present and moist mucous membranes Teeth and gingiva: dentition normal Throat: Yes posterior oropharynx normal Eyes General: appearance normal, both eyes and all related structures Pupils: Equal, round and reactive pupils present and Pupil accommodation reflex normal EOM: EOMs intact bilaterally Neck Neck: Yes normal visual inspection, Yes no lymphadenopathy and Yes trachea midline Thyroid: Thyroid normal Carotids: no bruits Lymphatic: no lymphadenopathy noted Chest Chest palpation & inspection: normal inspection of the chest Resp Effort & Inspection: normal respiratory effort Auscultation: clear to auscultation bilaterally Cardio Rate: regular rate Rhythm: regular rhythm Heart sounds: S1 normal heart sound present, S2 normal heart sound present, no gallops, no murmurs and no rubs Bruits: no abdominal aortic bruits and no carotid bruits GI Palpation (GI): No Abdominal aortic bruit present, Soft to palpation, nontender, No hepatosplenomegaly present and No Rebound tenderness present Auscultation: normal bowel sounds General: Yes no CVA tenderness Back/Spine/Pelvis Back: no CVA tenderness Cervical Spine: cervical ROM normal and No Cervical spine tenderness Thoracic/Lumbar Spine: thoraco-lumbar ROM normal, No pain with thoraco-lumbar ROM, No thoracic spinal tenderness and No lumbar spinal tenderness Skin Lesions: no lesions Rashes: no rashes Trauma: no lacerations or abrasions Wounds: no wounds Nails: normal Neuro General: patient oriented x3 Cranial nerves: Yes Equal, round and reactive pupils present Cognition (Neuro): normal cognition Gait exam (Neuro): Normal gait present Motor exam (neuro): 5/5 motor strength present throughout Sensory Exam: No Sensory deficit (Neuro) Deep tendon reflexes (DTR's): Right patellar reflex intensity grade: 2+ and Left patellar reflex intensity grade: 2+ Extrem General: Yes normal to inspection and No edema Psych Appearance: grossly normal Affect: normal affect Attitude: cooperative Thought process: Normal thought process present Coding Level of Care Code Est Pt Prev Care 18-39y([id number]) Diagnoses Annual physical exam Z00.00 Elevated ALT measurement R74.01 Anemia D64.9 Muscle cramps R25.2 Depression with anxiety F41.8 Difficulty concentrating R41.840 Additional Codes DAYANA-7 Assessment Billing - DAYANA-7 Assessment Tool: DAYANA-7 Assessment 69619 ([id number]) PHQ-9 - 50303 - PHQ-9 Billing: Yes ([id number]) Assessment & Plan Assessment & Plan (1) Annual physical exam: Code(s): Z00.00 - Encounter for general adult medical examination without abnormal findings Category: Medical Plan: 29-year-old male presents for complete physical exam Encouraged healthy diet with active lifestyle and plenty of exercise (2) Elevated ALT measurement: Code(s): R74.01 - Elevation of levels of liver transaminase levels Category: Medical Plan: Persistent mildly elevated liver enzymes Ultrasound shows no lesions Elastography rules out compensated advanced chronic liver disease Had referred him to Gastroenterology and he has not received a call for an appointment. Asking the office to facilitate an appointment. (3) Anemia: Code(s): D64.9 - Anemia, unspecified Category: Medical Plan: Mild anemia. He is just started iron by Neurology. Can recheck with subsequent lab draw (4) Muscle cramps: Code(s): R25.2 - Cramp and spasm Category: Medical Plan: Followed by neurology Patient says he still has symptoms He has follow-up with Neurology and I recommended attend (5) Depression with anxiety: Code(s): F41.8 - Other specified anxiety disorders Category: Medical Plan: Mildly worsened depression/anxiety We will temporarily increase his citalopram and see him back in couple of months (6) Difficulty concentrating: Code(s): R41.840 - Attention and concentration deficit Category: Medical Plan: Patient says he has difficulty concentrating and maintaining focus while working. He says his has suggested he may have ADHD. Referring him to [facility] outpatient psychiatric consult team for evaluation. Orders: Orders Comprehensive Met. Panel Today D64.9 - Anemia, unspecified Complete Blood Count Auto Diff Today D64.9 - Anemia, unspecified, Z00.00 - Encounter for general adult medical examination without abnormal findings IRON PROFILE Today D64.9 - Anemia, unspecified TSH reflex Free T4 Today D64.9 - Anemia, unspecified, Z00.00 - Encounter for general adult medical examination without abnormal findings Referrals Psychiatry Outpatient Consultation Service R41.786 - Attention and concentration deficit Medications: Changed From citalopram 20 mg PO DAILY 90 days 90 tabs 2RF To citalopram 40 mg PO DAILY 90 tabs 2RF 90 days
[2025-04-22 09:21] VITALS: BP 90/60; PULSE 77; RESP 14; TEMP 36.6; O2SAT 98; BMI 22.6
== END 2025-04-22 10:21 | disposition home or self-care (01) ==
LOC: HO.HMCFM 08:57
PROVIDERS: PCP Family Medicine; Visit Provider Family Medicine
DX: Z00.00 Encounter for general adult medical examination without abnormal findings (principal); R74.01 Elevation of levels of liver transaminase levels; D64.9 Anemia, unspecified; R25.2 Cramp and spasm; F41.8 Other specified anxiety disorders; R41.840 Attention and concentration deficit

== ENCOUNTER → 2025-04-22 08:56 | Outpatient (BNVA) | payer BC, SELFPAY | PROVIDERS: PCP Family Medicine; Visit Provider Family Medicine | DX: Z00.00 Encounter for general adult medical examination without abnormal findings (principal); R74.01 Elevation of levels of liver transaminase levels; D64.9 Anemia, unspecified; R25.2 Cramp and spasm; F41.8 Other specified anxiety disorders; R41.840 Attention and concentration deficit; Z13.31 Encounter for screening for depression | CPT/HCPCS: 96127 ==

== ENCOUNTER 2025-05-06 15:31 | Outpatient (AMB) | payer BC, SELFPAY ==
--- NOTE | 2025-05-06 15:39 | A.OFFPSYCH_ITS ---
Intake Intake Visit Reasons: consultation Feather Renovator Required: No Allergies Seasonal Allergies Allergy (Mild, Verified 04/22/25 09:19) Unknown Fish Containing Products Allergy (Verified 04/22/25 09:19) broke out in hives shellfish derived Allergy (Verified 04/22/25 09:19) food piosining, vomiting, diarrhea Medication List - Last Reconciled 05/06/25 by Malissa Payton APRN albuterol sulfate 90 mcg/actuation 1 inh inhalation QID betamethasone dipropionate 0.05% 1 appl topical BID PRN 30 days bupropion HCl 150 mg (2 x 75 mg) PO DAILY 90 days cholecalciferol (vitamin D3) 125 mcg PO QAM citalopram 40 mg PO DAILY 90 days ferrous sulfate 325 mg PO DAILY 90 days MDD 325mg PO loratadine (Allergy Relief (loratadine)) 10 mg PO DAILY mecobalamin (vitamin B12) 1,000 mcg sublingual BEDTIME MDD 1000mcg triamcinolone acetonide (Nasacort) 1 spray intranasal DAILY HPI- Psychiatric Chief Complaint: consultation HPI Narrative: Pt with a hx of anxiety and depression, currently treated with citalopram and bupropion. Pt has been on celexa 20mg and wellbutrin 150 mg for approximately 8 months and more recently the celexa was increased to 40mg daily. Pt Pt had mildly elevated PHQ-9 and DAYANA-7. He noted increased difficulties with focus and concentration. Pt reports lifelong problems with organization and forgetfulness; he had more trouble with focus, concentration, organization once he was in [facility]. he had trouble remembering to pass in homework; would mix up his folders. He ws diagnosed wirh dyslexia in High School. Pt completeed the adult ADHD scale and scored 3/6 on the cardinal symptoms of AADHD but also had 7/12 of the additional associated symptoms; One possibility may be the wellbutrin is helping with some of the ADHD symptoms. He also has medical issues that may contribute to distractibility: significant weight loss in 1 year(70 pounds) anemia, low B12 and iron levels. Hehad very low vitamin D level (8) , He is also having a workup by neurolgoy due to muscle twitches. Pt had a difficult childhoold with both parents having addictions. The early loss of his father from myocardail infarction when patient was 16 years old. Pts mother's health not good with ETOH abuse, tobacco use, and prescription pill abuse. Pt did well in school despite chotic hoe life and dyslexia. 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 He met his there and they last July. He reports supportive . He enjoys hiking and resistance work outs. he clarie restricts to 1800 herb /day. He denies SI or HI; no hx nikki. no hx psychosis. Past Psychiatric History: outpt tx x 8 ,months; tried family therapy after father and found it to be quite negative experience. No IPLOC Subjective Subjective Subjective Medication Compliance: Yes Side effects from medications: No Review of Systems Medical Review of Systems: unchanged Mental Status Exam Mental Status Exam Patient Appearance: Well Grooomed and Appropriate Level of Consciousness: Awake, Appropriate and Alert Patient Behavior: Appropriate, Cooperative and Good Eye Contact Mood Description: Appropriate and Anxious Affect Description: Appropriate and Anxious Patient Cognition Impaired: No Ability to Follow Directions: Good Speech Pattern: Clear, Appropriate and Coherent Memory Description: Intact and Episodic Impaired Hallucinations: None Delusions: Not Present Thought Process: Intact, Distracted and Rumination Thought Content: positive for Intact Judgement: Good Assessment and Plan Assessment & Plan (1) ADHD (attention deficit hyperactivity disorder): Status: Acute Qualifiers: Attention deficit-hyperactivity disorder type: unspecified Qualified Code(s): F90.9 - Attention-deficit hyperactivity disorder, unspecified type Code(s): F90.9 - Attention-deficit hyperactivity disorder, unspecified type (2) Depression with anxiety: Status: Acute Code(s): F41.8 - Other specified anxiety disorders (3) Weight loss: Status: Acute Code(s): R63.4 - Abnormal weight loss (4) Elevated ALT measurement: Status: Acute Code(s): R74.01 - Elevation of levels of liver transaminase levels (5) Difficulty concentrating: Status: Acute Code(s): R41.840 - Attention and concentration deficit (6) FHx: seizures: Status: Acute Code(s): Z84.89 - Family history of other specified conditions (7) Muscle cramps: Status: Acute Code(s): R25.2 - Cramp and spasm Plan continue celexa, wellbutrin vit D , vitamin B12, and iron obtain EKG refer to supervisor of officials/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 re: adequate electrolytes and nutrient intake consider either increasing wellbutrin or trialing a stimulant in 8-16 weeks after taking supplements particularly iron and b12 and gettin EKG dne as well as following up with neurolgy to rule out seizure do Orders: Orders ECG 12 lead EKG Today F90.9 - Attention-deficit hyperactivity disorder, unspecified type Referrals Director Of Loss Prevention Nutrition Referral R25.2 - Cramp and spasm, R41.840 - Attention and concentration deficit, R63.4 - Abnormal weight loss, T78.40XA - Allergy, unspecified, initial encounter Counseling and coordination of Care Pt. Self Management counseling: Med illness tx adherence, Mod caffeine/ETOH intake and Nutrition education and improvement Diagnosis and Prognosis Counseling: Accuracy of diagnosis, Prognosis over time, Impact of diagnosis on life functions and Adequacy of current interventions Details: I spent 90 minutes reviewing the record, seeing the patient and documenting in the medical record. Counseling provided to the patient/caregiver as outlined below. Addressed patient/caregiver concerns regarding current medication regime including effective adherence. Addressed patient/caregiver concerns regarding diagnosis and prognosis including accuracy of diagnosis, prognosis over time, impact of diagnosis. Addressed patient/caregiver concerns regarding impact of recent stressors. [facility] Medical History Muscle cramps Hypersomnia Asthma Seasonal allergies No pertinent past medical history Surgical History Hx of tonsillectomy Family History Mother Celiac disease Father Heart attack Other Mental health disorder Substance abuse Social History Household Members: Significant Other Both parents involved: No Caregiver staying overnight: No Housing: House Are you a primary career services coordinator to a significant other at home: No Do you presently have visiting nurse or other home services: No 75 years or older and lives alone: No Alcohol intake: never Patient Tobacco Use Status: Never used Tobacco e-Cigarette/Vaping Use: Never Used Special ahsan needs: No Agree to transfusion: Yes service: No Current occupational status: employed 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
--- OUTSIDE RECORDS SUMMARY | 2025-05-06 15:50 | XMS_ITS | Clinical Summary ---
Author Organization [facility] it Address [address] [place] [address] Care Team Providers Care Refuse Collector Name Role Phone Unavailable Primary Care Provider [...] of 3 - 19+ 3-dose series) 2014 HIV Screening 11/03/2023 Hepatitis C Screening 11/03/2023 Social Influencers of Health Screening 11/03/2023 COVID-19 Vaccine (1 - 2023-2 5 season) 2024 Depression Screening 10/10/2024 Influenza Vaccine (#1) 2025 Cholesterol Screening (Lipid [...]
--- OUTSIDE RECORDS SUMMARY | 2025-05-06 15:50 | XMS_ITS | Clinical Summary ---
Author Organization [facility] Address [address] [place] [address] Care Team Providers Care Adobe Layer Name Role Phone Unavailable Primary Care Provider [...] patient's age to complete this topic 19 [place] [phone] [facility] Self 1995 15 [place] [phone]
== END 2025-05-06 16:41 | disposition home or self-care (01) ==
LOC: HO.HOP 15:31
PROVIDERS: PCP Family Medicine; Visit Provider Clinical Nurse Specialist Psychiatric/Mental Health
DX: F90.9 Attention-deficit hyperactivity disorder, unspecified type (principal); F41.8 Other specified anxiety disorders; R63.4 Abnormal weight loss; R74.01 Elevation of levels of liver transaminase levels; R41.840 Attention and concentration deficit; Z84.89 Family history of other specified conditions; R25.2 Cramp and spasm
CPT/HCPCS: 90792

== ENCOUNTER → 2025-05-06 15:31 | Outpatient (BNVA) | payer BC, SELFPAY | PROVIDERS: PCP Family Medicine; Visit Provider Clinical Nurse Specialist Psychiatric/Mental Health | DX: F41.8 Other specified anxiety disorders (principal); F90.9 Attention-deficit hyperactivity disorder, unspecified type; R41.840 Attention and concentration deficit; R63.4 Abnormal weight loss; R74.01 Elevation of levels of liver transaminase levels; R25.2 Cramp and spasm; Z84.89 Family history of other specified conditions | CPT/HCPCS: 90792 ==

== ENCOUNTER 2025-05-22 08:09 | Outpatient (AMB) | payer BC, SELFPAY ==
--- OUTSIDE RECORDS SUMMARY | 2025-05-22 08:11 | XMS_ITS | Clinical Summary ---
Author Organization [facility] it Address [address] [place] [address] Care Team Providers Care Real Estate Operations Manager Name Role Phone Unavailable Primary Care [...]
--- OUTSIDE RECORDS SUMMARY | 2025-05-22 08:11 | XMS_ITS | Clinical Summary ---
Author Organization [facility] Address [address] [place] [address] Care Team Providers Care Engine House Helper Name Role Phone Unavailable Primary Care Provider [...] patient's age to complete this topic 19 [place] [id number] [facility] Self 1995 15 [place] [phone]
--- NOTE | 2025-05-23 07:11 | A.OFFVIS_ITS ---
Intake Visit Reasons: Initial Nutrition Appointment Allergies Seasonal Allergies Allergy (Mild, Verified 05/28/25 08:31) Unknown Fish Containing Products Allergy (Verified 05/28/25 08:31) broke out in hives shellfish derived Allergy (Verified 05/28/25 08:31) food piosining, vomiting, diarrhea Nutrition Presentation Details: Pt requested RD appointment for several reasons. Pt is looking to improve piron and vitamin D deficiencies and is also interested in losing more weight and gaining muscle mass. Also suffers from restless legs, twitches, cramps, overnight. Has seen several MDs who report that they believe pt issues are nut rition related. Appointments with GI and neuro pending. Elevated LFTs noted. Also reports he suffers from exema and asthma. Has been told he needs to improve on his electrolyte consumption but states he eats a balanced diet, stays hydrated. Does like coffee back. Takes 42900 IU Vitamin D. Denies GI issues. Wants to get down to a BMI of 18 to reduce body fat mass and then build up muscle mass to get weight back into recommended BMI range. Eats fast but does chew well. Reports that sometimes it feels like food gets stuck in throat. Has several choking episodes a year. Reason for consult: other (micronutrient deficiencies) Food allergies/aversions: Yes (Shellfish) Physical activity assessment: Reviewed (4-5 hours hiking weekend, strength 2x/week.) Diet Assmnt Details: Current weight is WNL. Pt has not had a body composition analysis done. Goal is 125-130# with low fat mass. Has lost about 70# intentionally over the last 1.5 years. works for [employer]. Pt used to track meals but has stopped. He feels like he is at a standstill with his weight and nutrition goals so is seeking an outside opinion. Lost weight via calorie reduction by 500 kcal/day. tried to lose 2#/week but was typically losing 1-1.5# perweek. During this time and currently, feels hungry and deprived at times but still wants to lose more. Has not cut out F&V. Highest weight (pounds): 210 (8 years ago, 200# 3 years ago) Lowest weight (pounds): 135 Goal weight: 125 Dietary counseling: Mediterranean Who buys your food: self Who prepares/cooks your food: self Meal frequency: regular: breakfast (black coffee, nonfat mongolian yogurt, nuts, raisins, fruit or dark chocolate) and dinner (diet soda, lean cuisine, fruit, frozen vegetables or salad with cottage cheese, chicken; or chili, potatoes, read meat) and irregular: lunch (skips or limits most of the time; coffee; occasional bagel sandwich with turkey sausage) and snacks Lifestyle Eating out: rarely or never (used to over-indulge. has intentionally eliminated high kcal foods, mostly fat) Reads food labels: Yes Family support: Yes Exercise: Yes Food frequency: Dairy: several times weekly, Fruit: daily, Vegetables: daily, Grains/pasta/breads/cereal (carbs): daily, Meats/poultry/fish (protein): daily, Meat substitutes/nuts/seeds/legumes: several times weekly, Fats/oils: several times weekly, Water: daily, Soda: occasionally, Juice: never, Coffee: daily and Sports/energy drinks: never BS Monitoring Most Recent Diabetes Results: Microalb/Creat Ratio TNP 04/19/25 Cholesterol, (<200) 137 mg/dL 04/19/25 HDL Cholesterol, (>40) 67 mg/dL 04/19/25 Triglycerides, (<150) 36 mg/dL 04/19/25 Creatinine, (0.5-1.4) 0.78 mg/dL 04/19/25 BUN, (9-16) 14 mg/dL 04/19/25 Sodium, (135-145) 139 mmol/L 04/19/25 Potassium, (3.3-5.1) 3.8 mmol/L 04/19/25 Chloride, (96-108) 104 mmol/L 04/19/25 Carbon Dioxide, (22-29) 30 mmol/L H 04/19/25 Calcium, (8.4-10.2) 9.1 mg/dL 04/19/25 AST, (5-37) 36 U/L 04/19/25 ALT, (0-40) 54 U/L H 04/19/25 Total Protein, (6.5-8.0) 6.7 g/dL 04/19/25 Albumin, (3.5-5.0) 4.5 g/dL 04/19/25 Assessment Assessment details: Extensive discussion had with patient about relationship with food and healthy ways to achieve goals. Has met with counselors in the past but has not ever met with someone who specializes in food. Is interested in meeting with a therapist who has a background in disordered eating. RD will email patient resources. Nutrition recommendation: initiate supplement (discussed how to properly take supplements for optimal absorption) and RD nutrition education (iron and vitamin D lists) [id number].[id number] Equation Calculated Activity Level: Moderate Activity Diagnosis Nutrition problem #1: inadequate protein energy and other (iron deficiency) As related to (etiology) #1: unsure how to apply info, diagnosis and increased PRO needs As evidenced by (sign/symptom) #1: est intake less than need, food recall and other Monitoring/Goals Nutrition problem monitoring: total energy intake, level of knowledge/skill and total PRO intake Outcome progress: verbalized understanding Learning/Education Readiness to learn: excellent Stages of change: action Educational materials provided: Yes Date of nutrition screenin05/22/25 Date of nutritional follow-up: 07/30/25 Follow up Follow-up frequency: other (2 months) Time Outcome assessment time: 60 minutes [facility] Medical History Muscle cramps Hypersomnia Asthma Seasonal allergies No pertinent past medical history Surgical History Hx of tonsillectomy Family History Mother Celiac disease Father Heart attack Other Mental health disorder Substance abuse Social History Household Members: Significant Other Both parents involved: No Caregiver staying overnight: No Housing: House Are you a primary career resource technician to a significant other at home: No Do you presently have visiting nurse or other home services: No 75 years or older and lives alone: No Alcohol intake: never Patient Tobacco Use Status: Never used Tobacco e-Cigarette/Vaping Use: Never Used Special ahsan needs: No Agree to transfusion: Yes service: No Current occupational status: employed 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 Cognitive needs: No Hearing needs: No Vision needs: No Assessment & Plan Assessment & Plan (1) Weight loss: Code(s): R63.4 - Abnormal weight loss Category: Medical Plan 1. shift some breakfast and dinner calories to lunch time (consider using Dinner leftovers 2. increase resistance training 3. meet with disordered eating specialist to discuss body image and relationship with food 4. take iron with vitamin C and vitamin D with a fat-containing meal 5. consider tracking food to have RD review for micronutrient and protein adequacy only if comfortable Patient Instructions: 1. shift some breakfast and dinner calories to lunch time (consider using Dinner leftovers 2. increase resistance training 3. meet with disordered eating specialist to discuss body image and relationship with food 4. take iron with vitamin C and vitamin D with a fat-containing meal 5. consider tracking food to have RD review for micronutrient and protein adequacy only if comfortable Coding Level of Care Code Nutr Indiv Intake (17652) Diagnoses Weight loss R63.4
== END 2025-05-22 09:19 | disposition home or self-care (01) ==
LOC: HO.HMCCN 08:09
PROVIDERS: PCP Family Medicine; Visit Provider Dietitian, Registered
DX: R63.4 Abnormal weight loss (principal)

== ENCOUNTER → 2025-05-22 08:09 | Outpatient (BNVA) | payer BC, SELFPAY | PROVIDERS: PCP Family Medicine; Visit Provider Dietitian, Registered | DX: Z71.3 Dietary counseling and surveillance (principal); R63.4 Abnormal weight loss | CPT/HCPCS: 97802 ==

== ENCOUNTER 2025-05-28 08:21 | Outpatient (AMB) | payer BC, SELFPAY ==
[2025-05-28 08:26] VITALS: BP 116/70; PULSE 78; O2SAT 98; BMI 23.5
--- NOTE | 2025-05-28 08:26 | MHC.OFFVIS ---
Vital Signs 05/28/25 08:26 Height 5 ft 7 in Weight 150 lb BMI 23.5 BP 116/70 Blood Pressure Location Lt brachial Position Sitting Pulse 78 Pulse Source Pulse Oximeter Pulse Oximetry (%) 98 Oxygen Delivery Method Room Air Intake Visit Reasons: 3m follow up Intake Note: Patient presents follow up Muscle spasms. Labs/EEG in chart. Accompanied by: Self / Same As Patient Allergies Seasonal Allergies Allergy (Mild, Verified 05/28/25 08:31) Unknown Fish Containing Products Allergy (Verified 05/28/25 08:31) broke out in hives shellfish derived Allergy (Verified 05/28/25 08:31) food piosining, vomiting, diarrhea HPI Comments Details: 29y/o right handed male presents for evaluation of Lower extremity muscle twitching. 12/2024 HST AHI was 0.8 and oxygen nadirs to 88%, snoring was moderate and 61% of TIB. EEG is normal and reviewed with patient. Labs reviewed with patient today, and normal. He has twitching bilaterally in his legs at rest, mostly notices it in the latter part of the day and sometimes in his upper extremities. He also has severe muscle cramps in his calves bilaterally a few times a month and this usually wakes him from sleep. Twitching does not occur when any movement. 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 He denies RLS and parasomnias, HST was normal. He denies paresthesias, tingling, burning pain, and or uncomfortable sensations. He denies any back or neck pain.He used to be obese over 200lbs but has lost about 70 lbs with dietary caloric restriction in the span of 1.5 years. He does not feel rested in the morning inspite of 6-8 hrs of sleep. Denies headaches. He says his mood can be anxious and he gets fixated over self image, will not look into a mirror. He is [place] Mal[place] [facility] [place]. His tells him he is disorganized, loses things, and he may have ADHD. He lacks concentration and he loses focus in meetings at work. He is taking Citalopram and Buproprion. He eats a well balanced diet, and walks or hikes about 2 hours once a week. [facility] Medical History Muscle cramps Hypersomnia Asthma Seasonal allergies No pertinent past medical history Surgical History Hx of tonsillectomy Family History Mother Celiac disease Father Heart attack Other Mental health disorder Substance abuse Social History Household Members: Significant Other Both parents involved: No Caregiver staying overnight: No Housing: House Are you a primary nanny caregiver to a significant other at home: No Do you presently have visiting nurse or other home services: No 75 years or older and lives alone: No Alcohol intake: never Patient Tobacco Use Status: Never used Tobacco e-Cigarette/Vaping Use: Never Used Special ahsan needs: No Agree to transfusion: Yes service: No Current occupational status: employed 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 Cognitive needs: No Hearing needs: No Vision needs: No Physical Exam Vital Signs: Last Vital Signs Pulse 78 05/28/25 08:26 BP 116/70 05/28/25 08:26 Pulse Ox 98 05/28/25 08:26 Oxygen Delivery Method Room Air 05/28/25 08:26 BMI result Body Mass Index 23.5 Const General: cooperative, comfortable and no acute distress Nutritional Appearance: average body habitus Orientation/consciousness: patient oriented x3 HEENT Face and sinus: Yes normal facial exam and Yes face symmetric Eyes Pupils: Equal, round and reactive pupils present Resp Effort & Inspection: normal respiratory effort and able to speak in complete sentences Neuro General: patient oriented x3 and moves all extremities Cranial nerves: Yes Equal, round and reactive pupils present, Yes Normal accommodation reflex present, Yes Bilaterally intact EOM present, Yes Nystagmus not present, Yes Normal facial strength present, Yes Midline tongue present, Yes Ability to bilaterally rotate head present and Yes Ability to bilaterally elevate shoulders present Gait exam (Neuro): Normal gait present Motor exam (neuro): 5/5 motor strength present throughout, Pronator motor function not present, no tremor noted, Normal motor muscle tone present throughout and Motor abnormalities not present Psych Appearance: grossly normal Mental Status: mental status grossly normal Thought process: Normal thought process present Thought content: Normal thought content present Results Reviewed Results Reviewed: EEG is normal. Impression: No significant abnormality noted on this EEG. HST is normal AHI is 0.8 and oxygen Nadirs to 88%, snoring is 61% of sleep. Assessment & Plan Assessment & Plan (1) Twitching: Comment: LE>UE Code(s): R25.3 - Fasciculation Category: Medical (2) Snoring: Comment: 61% of total time in bed. Code(s): R06.83 - Snoring Category: Medical (3) Bilateral leg cramps: Code(s): R25.2 - Cramp and spasm Category: Medical (4) Muscle cramps: Code(s): R25.2 - Cramp and spasm Category: Medical (5) Difficulty concentrating: Code(s): R41.840 - Attention and concentration deficit Category: Medical (6) Hypersomnia: Code(s): G47.10 - Hypersomnia, unspecified Category: Medical Plan HST is normal, will evaluate for RLS/ PLMD. Snoring is 61% of TIB. Will refer to sleep dentistry for mouth guard/ oral appliance evaluation in future if not improved with cpap. Labs WNL reviewed with patient will re-check ferritin at next visit. may be mildly anemic. Anxiety / ADHD continue buproprion and citalopram, start using the carole Powerlinx for mindful practices, and meditation/ relaxation techniques, look on line to find a therapist on [email or web address]. Start Magnesium 400mg po daily and start B6 200mg daily. NCS / EMG for Lower extremities bilateral fasiculation/ twitching. Future labs to consider Parathyroid hormone? Folate? Orders: Orders NE electromyogram (EMG) Today R25.2 - Cramp and spasm, R25.3 - Fasciculation NE nerve conduction velocity Today R25.2 - Cramp and spasm, R25.3 - Fasciculation RT PSG in-lab sleep study Today G47.10 - Hypersomnia, unspecified Medications: New magnesium oxide 400 mg PO DAILY 90 tabs 0RF muslce twitiching 3 months MDD 400mg po daily R25.2 - Cramp and spasm melatonin-pyridoxal phos (B6) 2.5 mg- 338 mcg 1 tab sublingual BEDTIME 90 tabs 3RF muslce cramps 3 months R25.2 - Cramp and spasm, R25.3 - Fasciculation Patient Instructions: Sleep Hygiene provided: set a scheduled bedtime and wake time to help regulate the circadian rhythm and balance the release of pituitary hormones. Sleep in a dark room, temperatures below 68 degrees, and no devices n bed. Limit caffeinated products 6 hours prior to bed, and limit fluids 2-4 hours prior to bed. Gentle night yoga, diffusing essential oils, and playing soft music can be relaxing. Coding Level of Care Code Est Pt Level 4 (45971) Diagnoses Twitching R25.3 Snoring R06.83 Bilateral leg cramps R25.2 Muscle cramps R25.2 Difficulty concentrating R41.840 Hypersomnia G47.10
--- OUTSIDE RECORDS SUMMARY | 2025-05-28 09:00 | XMS_ITS | Clinical Summary ---
Author Organization [facility] Address [address] [place] [address] Care Team Providers Care Electric Engine Mechanic Name Role Phone Unavailable Primary Care Provider [...]
--- OUTSIDE RECORDS SUMMARY | 2025-05-28 09:00 | XMS_ITS | Clinical Summary ---
Author Organization [facility] Address [address] [place] [address] Care Team Providers Care Vocational Technical Education Director Name Role Phone Unavailable Primary Care [...] patient's age to complete this topic 19 [place] [phone] [facility] Self 1995 [address] [place] [phone]
== END 2025-05-28 09:16 | disposition home or self-care (01) ==
LOC: HO.HSMS 08:21
PROVIDERS: PCP Family Medicine; Visit Provider Physician Assistant Medical
DX: R25.3 Fasciculation (principal); R06.83 Snoring; R25.2 Cramp and spasm; R41.840 Attention and concentration deficit; G47.10 Hypersomnia, unspecified
CPT/HCPCS: 99214

== ENCOUNTER 2025-06-20 09:51 | Outpatient (AMB) | payer BC, SELFPAY ==
--- NOTE | 2025-06-20 09:56 | MHC.OFFVIS ---
Vital Signs 06/20/25 09:59 Height 5 ft 7 in Weight 147 lb 11.355 oz BMI 23.1 BP 109/68 Blood Pressure Location Lt brachial Position Sitting Pulse 80 Intake Visit Reasons: Elevated levels of liver transaminase Intake Note: New patient in office today for elevated for liver transaminase. CC: Patient reports constipation recently. He also states that the density of liver is elevated per US done on 03/03. Intensive Care Anaesthetist Required: No Accompanied by: Self / Same As Patient Allergies Seasonal Allergies Allergy (Mild, Verified 06/20/25 10:03) Unknown No Known Drug Allergies Allergy (Unknown, Verified 06/20/25 10:03) none Fish Containing Products Allergy (Verified 06/20/25 10:03) broke out in hives shellfish derived Allergy (Verified 06/20/25 10:03) food piosining, vomiting, diarrhea HPI HPI Elevated levels of liver transaminase: Details: 29-year-old male here for initial evaluation of transaminitis. He is referred by Garrett Hope. PMX Asthma Eczema Allergic rhinitis ADHD Depression with anxiety Snoring Hives of unknown origin * SURGICAL HISTORY Tonsillectomy * ALLERGIES Shellfish Fish * [employer] LABS: Laboratory Tests 04/19/25 11:25 WBC 3.1 L Hgb 12.9 L Hct 39.1 L MCV 82.7 MCH 27.3 Estimated GFR > 60 Total Bilirubin 0.2 AST 36 ALT 54 H Alkaline Phosphatase 50 TSH 1.63 Laboratory Tests 01/27/24 08:20 Hep Bs Antigen Negative Hep Bs Antibody REACTIVE Hep B Core Total Ab Nonreactive Hepatitis C Ab (EIA) Nonreactive ULTRASOUND OF THE ABDOMEN WITH ELASTOGRAPHY (F0) FINDINGS: PANCREAS: The visualized pancreatic head is normal in appearance. The remainder of the pancreas is obscured from visualization by the overlying bowel gas. ABDOMINAL AORTA: The proximal, middle, and distal aortic segments are normal in caliber. INFERIOR VENA CAVA: Visualized portions are normal. LIVER: The liver demonstrates normal size, contour and echogenicity. No focal lesion or intrahepatic biliary duct dilatation. The right lobe measures 15.4 cm in length. The left lobe measures 8.8 cm in length. Portal flow is hepatopedal. Shear wave liver elastography median stiffness is 1.48 m/s (reference: normal median stiffness is 1.3 m/s or less). IQR/median stiffness to assess sampling precision is 0.17 (reference: good quality data set is IQR/median stiffness of 0.15 or less). GALLBLADDER: Normal. The gallbladder is physiologically distended without evidence of stones, sludge, polyps, wall thickening or pericholecystic fluid. COMMON BILE DUCT: Normal in caliber measuring 0.3 cm in diameter. RIGHT KIDNEY: Normal. No hydronephrosis. No renal calculi or focal parenchymal lesions. The kidney measures 11.7 cm in maximum dimension. LEFT KIDNEY: Normal. No hydronephrosis. No renal calculi or focal parenchymal lesions. The kidney measures 11.0 cm in maximum dimension. SPLEEN: Normal. The spleen measures 10.4 cm in maximum dimension. FREE FLUID: None. US/US abdomen comp w elastography IMPRESSION: 1. No abnormality seen.. Limited visualization of the pancreas. 2. Liver Elastography: In the absence of other known clinical signs, measurements rule out compensated advanced chronic liver disease. If there are known clinical signs, further testing may be needed for confirmation. TODAY'S VISIT [facility] Medical History Annual physical exam Muscle cramps Hypersomnia Asthma Seasonal allergies No pertinent past medical history Surgical History Hx of tonsillectomy Family History Mother Celiac disease Father Heart attack Other Mental health disorder Substance abuse Social History Household Members: Significant Other Both parents involved: No Caregiver staying overnight: No Housing: House Are you a primary healthcare specialist to a significant other at home: No Do you presently have visiting nurse or other home services: No 75 years or older and lives alone: No Alcohol intake: never Patient Tobacco Use Status: Never used Tobacco e-Cigarette/Vaping Use: Never Used Special ahsan needs: No Agree to transfusion: Yes service: No Current occupational status: employed 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 Cognitive needs: No Hearing needs: No Vision needs: No Review of Systems Const Denies fatigue, Denies fever(s), Denies night sweats, Denies poor appetite and Denies weight loss ENT Reports Normal hearing present, Denies dental pain, Denies dysphagia, Denies hearing loss, Denies mouth pain, Denies odynophagia, Denies throat swelling, Denies tongue swelling and Reports other (Dentition adequate) Card Reports no additional complaints Resp Reports no additional complaints GI Details: Denies abdominal pain, Denies melena, Denies bloating, Denies hematochezia, Denies constipation, Denies GI cramping, Denies dysphagia, Denies excessive flatus, Denies early satiety, Denies heartburn, Denies diarrhea, Denies nausea, Denies odynophagia, Denies vomiting and Denies hematemesis Skin/Breast Denies pruritus, Denies lesions, Reports rash and Denies jaundice Neuro Reports Normal hearing present and Denies Abnormal speech present Endo Denies fatigue Aller/Immun Denies throat swelling and Denies tongue swelling Physical Exam Vital Signs: Last Vital Signs Pulse 80 06/20/25 09:59 BP 109/68 06/20/25 09:59 BMI result Body Mass Index 23.1 Const General: cooperative, no acute distress, well developed and well groomed Nutritional Appearance: average body habitus and well nourished Orientation/consciousness: oriented to person, oriented to place and oriented to time Limitations: No language barrier HEENT Head: Yes normocephalic and Yes atraumatic Eyes General: appearance normal, both eyes and all related structures Pupils: Equal, round and reactive pupils present Neck Neck: Yes normal visual inspection and Yes no lymphadenopathy Thyroid: Thyroid normal Resp Effort & Inspection: normal respiratory effort and able to speak in complete sentences Auscultation: clear to auscultation bilaterally Cardio Rate: regular rate Rhythm: regular rhythm Heart sounds: Normal, physiologic split S2 sound present Peripheral pulses: radial pulses present and posterior tibial pulses present GI Inspection: No distended and No Abdominal panniculus present Palpation (GI): Soft to palpation, nontender, no guarding, not rigid and No hepatosplenomegaly present Percussion: Yes normal to percussion Auscultation: normal bowel sounds Rectal Exam - Male: Yes deferred Skin General skin exam: no rashes or lesions noted, turgor normal, skin not dry, no jaundice, No spider nevi and no striae Rashes: no rashes Nails: normal Neuro General: oriented to person, oriented to place and oriented to time Cranial nerves: Yes Equal, round and reactive pupils present and Yes Normal hearing present Speech: No Abnormal speech present Extrem General: Yes normal to inspection, No clubbing, No cyanosis and No edema Psych Appearance: grossly normal and well kempt Mental Status: mental status grossly normal Speech and movement: Normal speech and movement present Affect: normal affect Attitude: cooperative Thought process: Normal thought process present and not confabulating Thought content: Normal thought content present Insight: Good insight present (Psych) Judgement: Good judgement present (Psych) Assessment & Plan Assessment & Plan (1) Elevated ALT measurement: Code(s): R74.01 - Elevation of levels of liver transaminase levels Category: Medical (2) Family history of celiac disease: Code(s): Z83.79 - Family history of other diseases of the digestive system Category: Medical Plan - The patient is a 29-year-old male presenting with elevated liver enzymes. - ultrasound with elastography ordered by the primary care provider with stage F0. - Does not consume alcohol; suspicion of a hereditary fatty liver condition due to maternal fatty liver disease history. This also a family history of celiac disease. The patient's stool so are normal and formed but he does have a history of contact dermatitis particularly with shrimp. - Anemia history with current iron supplementation and consequent constipation. - Muscle cramps persist, previously considered potentially related to low iron levels or other factors. - I explained to him this is most likely fatty liver but we will get additional labs to rule out any autoimmune component, ferritin for hemochromatosis, he is negative for hepatitis ab and C but an HIV screen was not done, etc... -return office visit in 6 weeks Orders: Orders CHRIST Reflex Titer and Pattern Today R74.01 - Elevation of levels of liver transaminase levels, Z83.79 - Family history of other diseases of the digestive system C Reactive Protein Today R74.01 - Elevation of levels of liver transaminase levels, Z83.79 - Family history of other diseases of the digestive system Ferritin Today R74.01 - Elevation of levels of liver transaminase levels, Z83.79 - Family history of other diseases of the digestive system Smooth Muscle Antibody Today R74.01 - Elevation of levels of liver transaminase levels, Z83.79 - Family history of other diseases of the digestive system Mitochondrial Antibody Today R74.01 - Elevation of levels of liver transaminase levels, Z83.79 - Family history of other diseases of the digestive system Transglutaminase IgA Today R74.01 - Elevation of levels of liver transaminase levels, Z83.79 - Family history of other diseases of the digestive system Transglutaminase Ab IgG Today R74.01 - Elevation of levels of liver transaminase levels, Z83.79 - Family history of other diseases of the digestive system TSH reflex Free T4 Today R74.01 - Elevation of levels of liver transaminase levels, Z83.79 - Family history of other diseases of the digestive system HIV Ab/Ag Today R74.01 - Elevation of levels of liver transaminase levels, Z83.79 - Family history of other diseases of the digestive system Ceruloplasmin Today R74.01 - Elevation of levels of liver transaminase levels, Z83.79 - Family history of other diseases of the digestive system Coding Level of Care Code New Pt Level 3 (40211) Diagnoses Elevated ALT measurement R74.01 Family history of celiac disease Z83.79
[2025-06-20 09:59] VITALS: BP 109/68; PULSE 80; BMI 23.1
--- OUTSIDE RECORDS SUMMARY | 2025-06-20 11:41 | XMS_ITS | Clinical Summary ---
Author Organization [facility] Address [address] [place] [address] Care Team Providers Care Referral Manager Name Role Phone Unavailable Primary Care [...] patient's age to complete this topic 19 [place] [phone] [facility] Self 1995 15 [place] [phone]
--- OUTSIDE RECORDS SUMMARY | 2025-06-20 11:41 | XMS_ITS | Clinical Summary ---
Author Organization [facility] it Address [address] [place] [address] Care Team Providers Care Admitted Attorneys Name Role Phone Unavailable Primary Care Provider [...] 11/03/2023 Social Influencers of Health Screening 11/03/2023 Depression Screening 10/10/2024 COVID-19 Vaccine (1 - 2023-2 5 season) 2025 Influenza Vaccine (#1) 2025 Cholesterol Screening (Lipid [...]
== END 2025-06-20 11:24 | disposition home or self-care (01) ==
LOC: HO.HGI 09:52
PROVIDERS: PCP Family Medicine; Visit Provider Nurse Practitioner
DX: R74.01 Elevation of levels of liver transaminase levels (principal); Z83.79 Family history of other diseases of the digestive system
CPT/HCPCS: 99203

== ENCOUNTER → 2025-06-20 09:51 | Outpatient (REF) | payer BC, SELFPAY ==
--- NOTE | 2025-06-20 11:14 | ECG_ITS ---
Test Reason : adhd Blood Pressure : */* mmHG Vent. Rate : 74 BPM Atrial Rate : 74 BPM P-R Int : 146 ms QRS Dur : 110 ms QT Int : 378 ms P-R-T Axes : 68 77 62 degrees QTcB Int : 419 ms Normal sinus rhythm Normal ECG No previous ECGs available Referred By: Malissa Pyaton Electronically Signed By: SHERICE JUÁREZ MD
[2025-06-20 11:28] LABS: MANUAL DIFF FLAG NO
[2025-06-20 11:35] LABS: Hematocrit 41.0 % (42.0-52.0); Hemoglobin 13.9 g/dl (14.0-18.0); Imm Gran Abs Auto 0.02 X10*3/uL (0.00-0.03); Imm Gran Pct Auto 0.5 % (0.0-0.4); Lymphocytes Absolute Auto 1.3 X10*3/uL (1.2-4.9); Mean Corpuscular HGB Conc 33.9 g/dl (31.0-36.0); Mean Corpuscular Hemoglobin 27.7 pg (27.0-33.0); Mean Corpuscular Volume 81.8 fL (80.0-98.0); NRBC Abs Auto 0.000 X10*3/uL (0.0-0.012); NRBC Pct Auto 0.0 /100WBC (0.0-0.2); Platelet Count 195 X10*3/uL (160-400); Red Blood Count 5.01 X10*6/uL (4.60-5.80); White Blood Count 4.0 X10*3/uL (4.8-10.8)
[2025-06-20 12:25] LABS: Albumin Level 4.8 g/dL (3.5-5.0); Alkaline Phosphatase 55 U/L (39-117); Anion Gap 10 (12-20); Aspartate Amino Transferase 30 U/L (5-37); Blood Urea Nitrogen 10 mg/dL (9-16); Calcium 9.3 mg/dL (8.4-10.2); Carbon Dioxide 30 mmol/L (22-29); Chloride 105 mmol/L (96-108); Estimated Glomerular Filt Rate > 60; Iron 141 mcg/dL (45-160); Percent Iron Saturation 57 % (15-50); Potassium 4.2 mmol/L (3.3-5.1); Sodium 141 mmol/L (135-145); Total Iron Binding Capacity 248 mcg/dL (228-428); Total Protein 7.3 g/dL (6.5-8.0); Unsaturated Iron Binding 107 ug/dL
[2025-06-20 12:29] LABS: HIV Num 1 0.06 S/CO (0.00-0.99)
[2025-06-20 12:43] LABS: Alanine Aminotransferase 44 U/L (0-40)
[2025-06-20 12:47] LABS: Ferritin 128 ng/mL (20-250)
[2025-06-21 21:33] LABS: Transglutaminase Ab IgG <1.0 U/mL
[2025-06-25 14:14] LABS: Anti Nuclear Antibody Screen NEGATIVE (NEGATIVE)
== END ==
LOC: HO.CARD 09:51
PROVIDERS: Absent Provider Clinical Nurse Specialist Psychiatric/Mental Health; PCP Family Medicine; Visit Provider Nurse Practitioner
DX: Z00.00 Encounter for general adult medical examination without abnormal findings (principal); R74.01 Elevation of levels of liver transaminase levels; F90.9 Attention-deficit hyperactivity disorder, unspecified type; D64.9 Anemia, unspecified; K59.00 Constipation, unspecified; Z83.79 Family history of other diseases of the digestive system
CPT/HCPCS: 36415; 80053; 82390; 82728; 83540; 84443; 85025; 86015; 86038; 86140; 86364; 86381; 87389; 93005

== ENCOUNTER → 2025-06-20 11:14 | Outpatient (BNV) | payer BC, SELFPAY | PROVIDERS: Absent Provider Clinical Nurse Specialist Psychiatric/Mental Health; PCP Family Medicine; Visit Provider Internal Medicine Cardiovascular Disease | DX: F90.9 Attention-deficit hyperactivity disorder, unspecified type (principal) | CPT/HCPCS: 93010 ==

== ENCOUNTER 2025-07-01 08:59 | Outpatient (AMB) | payer BC, SELFPAY ==
--- NOTE | 2025-07-01 09:17 | MHC.OFFVISPS ---
Intake Intake Visit Reasons: f/u consultation French Instructor Required: No Allergies Seasonal Allergies Allergy (Mild, Verified 06/20/25 10:03) Unknown No Known Drug Allergies Allergy (Unknown, Verified 06/20/25 10:03) none Fish Containing Products Allergy (Verified 06/20/25 10:03) broke out in hives shellfish derived Allergy (Verified 06/20/25 10:03) food piosining, vomiting, diarrhea Medication List - Last Reconciled 07/01/25 by Malissa Payton APRN albuterol sulfate 90 mcg/actuation 1 inh inhalation QID betamethasone dipropionate 0.05% 1 appl topical BID PRN 30 days bupropion HCl 150 mg (2 x 75 mg) PO DAILY 90 days cholecalciferol (vitamin D3) 125 mcg PO QAM citalopram 40 mg PO DAILY 90 days ferrous sulfate 325 mg PO DAILY 90 days MDD 325mg PO loratadine (Allergy Relief (loratadine)) 10 mg PO DAILY magnesium oxide 400 mg PO DAILY 3 months MDD 400mg po daily mecobalamin (vitamin B12) 1,000 mcg sublingual BEDTIME MDD 1000mcg melatonin-pyridoxal phos (B6) 2.5 mg- 338 mcg 1 tab sublingual BEDTIME 3 months triamcinolone acetonide (Nasacort) 1 spray intranasal DAILY HPI- Psychiatric Chief Complaint: f/u consultation HPI Narrative: Pt seen for follow up re: hx of anxiety and depression, currently treated with citalopram and bupropion. Pt has been on celexa 40 mg and wellbutrin 75mg bid for and feels it is helping with depression and anxiety. His PHQ( went from 8 to 4 but his GAD7 is still high at 11 (was previously 10) . He is struggling with attention and focus. He has trouble with short term recall and staying in the present. He is forgetful. His EKG was normal sinus rhythym. His blood work looks good. He has seen neurology and had EEG was normal. He is scheduled for EMG due to twitching. He has seen gastroenterolgy due to elevated LFTs. He followed up wit curing press maintainer and was reassured he is taking in adequate nutrients. HX: Pt reports lifelong problems with organization and forgetfulness; he had more trouble with focus, concentration, organization once he was in [facility]. he had trouble remembering to pass in homework; would mix up his folders. He was diagnosed with dyslexia in High School. Pt completed the adult ADHD scale and scored 3/6 on the cardinal symptoms of ADHD but also had 7/12 of the additional associated symptoms; One possibility may be the wellbutrin is helping with some of the ADHD symptoms. 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 He met his there and they last July. He reports supportive . He enjoys hiking and resistance work outs. he clarie restricts to 1800 herb /day. He denies SI or HI; no hx nikki. no hx psychosis. Past Psychiatric History: outpt tx x 8 ,months; tried family therapy after father and found it to be quite negative experience. No IPLOC Subjective Subjective Subjective Medication Compliance: Yes Side effects from medications: No Review of Systems Medical Review of Systems: unchanged Mental Status Exam Mental Status Exam Patient Appearance: Well Grooomed and Appropriate Patient Orientation: Person, Place, Time and Situation Level of Consciousness: Awake and Appropriate Patient Behavior: Appropriate, Cooperative and Good Eye Contact Mood Description: Depressed, Anxious, Blunted and Flat Affect Description: Depressed, Anxious, Blunted and Flat Patient Cognition Impaired: No Ability to Follow Directions: Good Speech Pattern: Clear Memory Description: Intact Hallucinations: None Delusions: Not Present Thought Process: Intact Thought Content: positive for Intact Judgement: Good Results Reviewed Results Reviewed: labs reviewed EKG reviewed neurology note reviewed gastroenterology note reviewed Assessment and Plan Assessment & Plan (1) ADHD (attention deficit hyperactivity disorder): Status: Acute Qualifiers: Attention deficit-hyperactivity disorder type: unspecified Qualified Code(s): F90.9 - Attention-deficit hyperactivity disorder, unspecified type Code(s): F90.9 - Attention-deficit hyperactivity disorder, unspecified type (2) Depression with anxiety: Status: Acute Code(s): F41.8 - Other specified anxiety disorders (3) Elevated ALT measurement: Status: Acute Code(s): R74.01 - Elevation of levels of liver transaminase levels (4) Difficulty concentrating: Status: Acute Code(s): R41.840 - Attention and concentration deficit (5) Muscle cramps: Status: Acute Code(s): R25.2 - Cramp and spasm Plan change wellbutrin to XL 150mg qam trial of ritalin 5 mg up to 2 a day pt to contact me for new rx if ritalin helpful retrun in 8 weeks Medications: New bupropion HCl XL (Wellbutrin XL) 150 mg PO QAM 30 tabs 0RF methylphenidate HCl (Ritalin) Partial Fill upon patient request. 5 mg PO DAILY 30 tabs 0RF Discontinued bupropion HCl Discontinued Reason: Doctor's Order 150 mg (2 x 75 mg) PO DAILY 90 days 180 tabs 3RF Counseling and coordination of Care Pt. Self Management counseling: Med illness tx adherence, Mod caffeine/ETOH intake, Nutrition education and improvement, Sleep hygiene and General coping skills Medication management counseling: Effectiveness, Side effects, Dosing range, Duration, Drug interaction and Adherence Diagnosis and Prognosis Counseling: Accuracy of diagnosis, Prognosis over time, Impact of diagnosis on life functions and Adequacy of current interventions Details: I spent 35 minutes reviewing the record, seeing the patient and documenting in the medical record. Counseling provided to the patient/caregiver as outlined below. Addressed patient/caregiver concerns regarding current medication regime including effective adherence. Addressed patient/caregiver concerns regarding diagnosis and prognosis including accuracy of diagnosis, prognosis over time, impact of diagnosis. Addressed patient/caregiver concerns regarding impact of recent stressors. [facility] Medical History Annual physical exam Muscle cramps Hypersomnia Asthma Seasonal allergies No pertinent past medical history Surgical History Hx of tonsillectomy Family History Mother Celiac disease Father Heart attack Other Mental health disorder Substance abuse Social History Household Members: Significant Other Both parents involved: No Caregiver staying overnight: No Housing: House Are you a primary resident care provider to a significant other at home: No Do you presently have visiting nurse or other home services: No 75 years or older and lives alone: No Alcohol intake: never Patient Tobacco Use Status: Never used Tobacco e-Cigarette/Vaping Use: Never Used Special ahsan needs: No Agree to transfusion: Yes service: No Current occupational status: employed 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
--- OUTSIDE RECORDS SUMMARY | 2025-07-01 10:29 | XMS_ITS | Clinical Summary ---
Author Organization [facility] it Address [address] [place] [address] Care Team Providers Care Drill Sergeant Name Role Phone Unavailable Primary Care Provider [...]
--- OUTSIDE RECORDS SUMMARY | 2025-07-01 10:29 | XMS_ITS | Clinical Summary ---
Author Organization [facility] Address [address] [place] [address] Care Team Providers Care Garage Door Opener Installer Name Role Phone Unavailable Primary Care Provider [...] patient's age to complete this topic 19 [place] [phone] [facility] Self 1995 15 [place] [phone]
== END 2025-07-01 09:42 | disposition home or self-care (01) ==
LOC: HO.HOP 08:59
PROVIDERS: PCP Family Medicine; Visit Provider Clinical Nurse Specialist Psychiatric/Mental Health
DX: F90.9 Attention-deficit hyperactivity disorder, unspecified type (principal); F41.8 Other specified anxiety disorders; R74.01 Elevation of levels of liver transaminase levels; R41.840 Attention and concentration deficit; R25.2 Cramp and spasm
CPT/HCPCS: 99214

== ENCOUNTER 2025-07-02 08:35 | Outpatient (AMB) | payer BC, SELFPAY ==
--- NOTE | 2025-07-02 08:37 | MHC.PC.OV ---
Vital Signs 07/02/25 08:42 Height 5 ft 7 in Weight 147 lb 6 oz BMI 23.1 BP 106/64 Blood Pressure Location Rt brachial Position Sitting Respiration 14 Pulse 88 Pulse Source Pulse Oximeter Temp 97.8 F Temp Source Temporal Artery Scan Pulse Oximetry (%) 98 Oxygen Delivery Method Room Air Intake Visit Reasons: f/u anxiety/depression Intake Note: Judson presents in the office this morning for a follow up to his depression and anxiety. Patient has consult for ADHD and Gastro. Allergies Seasonal Allergies Allergy (Mild, Verified 06/20/25 10:03) Unknown Fish Containing Products Allergy (Verified 06/20/25 10:03) broke out in hives shellfish derived Allergy (Verified 06/20/25 10:03) food piosining, vomiting, diarrhea Tobacco use date assessed: 07/02/25 Dental Screening Dental Screen Date: 07/02/25 Did you have a dental visit in the last 12 months?: Yes Did you have a dental problem in the last 6 months where you did not have access to dental care?: No Was dental information given to patient?: Patient has dentist HPI f/u anxiety/depression HPI Details 29 y/o male presents to f/u anxiety/depression. Had been seeing Malissa Payton. Was diagnosed with ADHD. He is on wellbutrin, citalopram. Continues to f/u with them. Labs drawn 06/20/25. Reviewed labs with pt. Mild anemia. Elevated ALT of 44. Reports ongoing twitching. Describes twitching anywhere on his body. [facility] Medical History Annual physical exam Muscle cramps Hypersomnia Asthma Seasonal allergies No pertinent past medical history Surgical History Hx of tonsillectomy Family History Mother Celiac disease Father Heart attack Other Mental health disorder Substance abuse Social History (Updated 07/02/25 @ 08:41 by Isaura Wesley CMA) Household Members: Significant Other Both parents involved: No Caregiver staying overnight: No Housing: House Are you a primary anesthesiologist and critical care to a significant other at home: No Do you presently have visiting nurse or other home services: No 75 years or older and lives alone: No Alcohol intake: never Patient Tobacco Use Status: Never used Tobacco e-Cigarette/Vaping Use: Never Used Second Hand Smoke Exposure: No Special ahsan needs: No Agree to transfusion: Yes service: No Current occupational status: employed 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 Cognitive needs: No Hearing needs: No Vision needs: No Questionnaire Thrive Questionnaire Date Thrive assessed: 04/22/25 I am a: Patient What is your living situation today?: I have a steady place to live Within the past 12 months, did the food you bought not last and you didn't have the money to get more?: Never true Within the past 12 months, did you worry whether your food would run out before you got money to buy more?: Never true Do you have trouble paying for medicines?: No Do you have trouble getting transportation to medical appointments?: No Do you have trouble paying your heating and electricity bill?: No Do you have trouble taking care of your child, family member or friend?: No Do you have trouble with day-to-day activities such as bathing, preparing meals, shopping, managing finances, etc.?: No Are you currently unemployed and looking for a job?: No Are you interested in more education?: No Please select the resources that you would like help with: None Currently or been in a relationship where the following occur: No concerns reported THRIVE Score: 0 DAYANA-7 AMB Questionnaire DAYANA-7 Date DAYANA - 7 assessed: 04/18/24 Source: Developed by Drs. Osmel Prakash, Laura Waddell, Nigel Royal and colleagues, with an educational ina from [employer]. Review of Systems Const Denies chills, Denies fatigue, Denies fever(s), Denies headache(s) and Denies weakness ENT Denies dizziness and Denies headache(s) Card Denies dyspnea Resp Denies cough, Denies dyspnea, Denies wheezing and Denies other (shortness of breath) Musc Denies numbness and Denies tingling Neuro Denies dizziness, Denies headache(s), Denies numbness, Denies tingling and Denies weakness Psych Denies anxiety and Denies depression Endo Denies fatigue Aller/Immun Denies wheezing Physical exam (Primary Care) Vital Signs: Last Vital Signs Temp 97.8 F 07/02/25 08:42 Pulse 88 07/02/25 08:42 Resp 14 07/02/25 08:42 BP 106/64 07/02/25 08:42 Pulse Ox 98 07/02/25 08:42 Oxygen Delivery Method Room Air 07/02/25 08:42 BMI result Body Mass Index 23.1 Tobacco/Smoking Status: Tobacco use Status Tobacco use date assessed 07/02/25 07/02/25 08:45 Patient Tobacco Use Status Never used Tobacco 07/02/25 08:41 e-Cigarette/Vaping Use Never Used 07/02/25 08:41 Thrive Assessment: Date of Thrive Assessment Date Thrive assessed 04/22/25 07/02/25 08:39 Currently or been in a relationship where the following occur: No concerns reported Const General: well developed; No acute distress Nutritional Appearance: well nourished Orientation/consciousness: patient oriented x3 HENMT Head: Yes normocephalic and Yes atraumatic Eyes General: appearance normal, both eyes and all related structures Pupils: Equal, round and reactive pupils present EOM: EOMs intact bilaterally Resp Effort & Inspection: normal respiratory effort Neuro General: patient oriented x3 and gait normal Cranial nerves: Yes Equal, round and reactive pupils present Psych Affect: normal affect Coding Level of Care Code Est Pt Level 4 (38538) Diagnoses Depression with anxiety F41.8 Attention deficit hyperactivity disorder (ADHD), unspecified ADHD type F90.9 Attention deficit-hyperactivity disorder type: unspecified Mild anemia D64.9 Elevated ALT measurement R74.01 Twitching R25.3 Assessment & Plan Assessment & Plan (1) Depression with anxiety: Code(s): F41.8 - Other specified anxiety disorders Category: Medical Plan: Still taking citalopram and recent adjustment of bupropion. His psych med provider has also prescribed Ritalin which he has not started yet-see below Continue trial of new medication regimen and follow-up with psych med provider as recommended. Currently stable (2) ADHD (attention deficit hyperactivity disorder): Code(s): F90.9 - Attention-deficit hyperactivity disorder, unspecified type Category: Medical Qualifiers: Attention deficit-hyperactivity disorder type: unspecified Qualified Code(s): F90.9 - Attention-deficit hyperactivity disorder, unspecified type Plan: Positive diagnosis of ADHD and will begin trial of Ritalin Follow-up with psych med provider as recommended (3) Mild anemia: Code(s): D64.9 - Anemia, unspecified Category: Medical Plan: This has improved and is nearly normalized We can follow-up periodically Encouraged healthy diet (4) Elevated ALT measurement: Code(s): R74.01 - Elevation of levels of liver transaminase levels Category: Medical Plan: Liver enzyme ALT has improved and nearly in normal range He has follow-up with Gastroenterology (5) Twitching: Comment: LE>UE Code(s): R25.3 - Fasciculation Category: Medical Plan: Has seen neurology and has EMG planned Symptoms persist No weakness Follow-up with Neurology as recommended
[2025-07-02 08:42] VITALS: BP 106/64; PULSE 88; RESP 14; TEMP 36.6; O2SAT 98; BMI 23.1
--- OUTSIDE RECORDS SUMMARY | 2025-07-02 09:33 | XMS_ITS | Clinical Summary ---
Author Organization [facility] it Address [address] [place] [address] Care Team Providers Care Radiology Transporter Name Role Phone Unavailable Primary Care Provider [...]
--- OUTSIDE RECORDS SUMMARY | 2025-07-02 09:33 | XMS_ITS | Clinical Summary ---
Author Organization [facility] Address [address] [place] [address] Care Team Providers Care Legal Administrative Assistant Name Role Phone Unavailable Primary Care Provider [...] patient's age to complete this topic 19 [place] [phone] [facility] Self 1995 15 [place] [phone]
== END 2025-07-02 09:29 | disposition home or self-care (01) ==
LOC: HO.HMCFM 08:35
PROVIDERS: PCP Family Medicine; Visit Provider Family Medicine
DX: F41.8 Other specified anxiety disorders (principal); F90.9 Attention-deficit hyperactivity disorder, unspecified type; D64.9 Anemia, unspecified; R74.01 Elevation of levels of liver transaminase levels; R25.3 Fasciculation

== ENCOUNTER 2025-07-25 13:44 | Outpatient (REF) | payer BC, SELFPAY ==
--- NOTE | 2025-07-25 13:48 | EMG_ITS ---
Chief complaint: Muscle jerking, legs more than arms. Denies atrophy, weakness or fasciculations. Reason for referral: Evaluate for muscle cramps/twitching Referred by: Rubia VIERA Procedure done: Bilateral lower extremity NCS/EMG Precautions and/or limitations: None The limb temperature was monitored continuously and remained between 32-36 degrees C during the performance of the NCS. Nerve Conduction Studies Anti Sensory Summary Table ?Stim Site NR Onset (ms) Norm Onset (ms) Peak (ms) Norm Peak (ms) O-P Amp (?V) Norm O-P Amp Site1 Site2 Delta-0 (ms) Dist (cm) Darwin (m/s) Norm Darwin (m/s) Left Sural Anti Sensory (Lat Mall) Calf ? 3.1 3.6 <4.0 11.8 >5.0 Calf Lat Mall 3.1 14.0 45 Right Sural Anti Sensory (Lat Mall) Calf ? 3.0 3.5 <4.0 30.6 >5.0 Calf Lat Mall 3.0 14.0 47 Motor Summary Table ?Stim Site NR Onset (ms) Norm Onset (ms) O-P Amp (mV) Norm O-P Amp iAmp (mV) Amp (1st) (%) Site1 Site2 Delta-0 (ms) Dist (cm) Darwin (m/s) Norm Darwin (m/s) Right Peroneal Motor (Ext Dig Brev) Ankle ? 3.5 <4.0 6.9 >2.5 8.0 100.0 Ankle Ext Dig Brev 3.5 0.0 B Fib ? 8.8 6.6 7.8 95.7 B Fib Ankle 5.3 31.0 58 >40 Poplt ? 10.0 6.7 7.8 97.1 Poplt B Fib 1.2 5.0 42 >40 Left Tibial Motor (Abd Doran Brev) Ankle ? 3.9 <5 18.2 >2.5 27.2 100.0 Ankle Abd Doran Brev 3.9 0.0 Knee ? 11.6 8.0 11.8 44.0 Knee Ankle 7.7 41.0 53 >40 Right Tibial Motor (Abd Doran Brev) Ankle ? 4.2 <5 16.1 >2.5 21.3 100.0 Ankle Abd Doran Brev 4.2 0.0 Knee ? 10.7 5.0 7.4 31.1 Knee Ankle 6.5 39.0 60 >40 EMG ?Side Muscle Nerve Root Ins Act Fibs Psw Amp Dur Poly Recrt Int Pat Comment Right AbdHallucis MedPlantar S1-2 Nml Nml Nml Nml Nml 0 Nml Complete Right AntTibialis Dp Br Peron L4-5 Nml Nml Nml Nml Nml 0 Nml Complete Right PostTibialis Tibial L5, S1 Nml Nml Nml Nml Nml 0 Nml Complete Right MedGastroc Tibial S1-2 Nml Nml Nml Nml Nml 0 Nml Complete Right VastusMed Femoral L2-4 Nml Nml Nml Nml Nml 0 Nml Complete Left AbdHallucis MedPlantar S1-2 Nml Nml Nml Nml Nml 0 Nml Complete Left AntTibialis Dp Br Peron L4-5 Nml Nml Nml Nml Nml 0 Nml Complete Left PostTibialis Tibial L5, S1 Nml Nml Nml Nml Nml 0 Nml Complete Left MedGastroc Tibial S1-2 Nml Nml Nml Nml Nml 0 Nml Complete Left VastusMed Femoral L2-4 Nml Nml Nml Nml Nml 0 Nml Complete Paraspinal EMG ?Side Muscle Nerve Root Ins Act Fibs Psw Comment Right Lumbar Upper Rami Nml Nml Nml Right Lumbar Mid Rami Nml Nml Nml Right Lumbar Lower Rami Nml Nml Nml Left Lumbar Upper Rami Nml Nml Nml Left Lumbar Mid Rami Nml Nml Nml Left Lumbar Lower Rami Nml Nml Nml FINDINGS: All motor and sensory nerves tested showed normal latencies, amplitudes and conduction velocities. Concentric needle EMG was performed in selected muscles of the bilateral lower extremity and lumbar paraspinals. Study did not reveal signs of electric abnormalities as shown in the table above. IMPRESSION: 1. This is a normal study. 2. There is no electrodiagnostic evidence for peroneal neuropathy, tibial neuropathy, lumbosacral plexopathy, lumbar radiculopathy, or peripheral neuropathy. Thank you for your kind referral. Rosana Matthews MD, ELIANE Board Certified, [place] Board [employer] and Rehabilitation (ABPMR) Board Certified, [place] Board of Electrodiagnostic Medicine (ABEM) CODIN 89069 x 2 MTDD
--- OUTSIDE RECORDS SUMMARY | 2025-07-25 17:29 | XMS_ITS | Clinical Summary ---
Author Organization [facility] Address [address] [place] [address] Care Team Providers Care Gravity Meter Operator Name Role Phone Unavailable Primary Care [...] of 3 - 19+ 3-dose series) 2014 HPV Vaccines (1 - 3-dose SCD M series) 2022 HIV Screening 11/03/2023 Hepatitis C Screening 11/03/2023 Social Influencers of Health Screening 11/03/2023 Depression Screening 10/10/2024 COVID-19 Vaccine (1 - 2023-2 5 season) 2025 Influenza Vaccine (#1) 2025 Cholesterol Screening (Lipid Panel) 09/28/2028 09/28/2023 RSV Immunization Adult Patie nts (1 - 1-dose 75+ series) 2070 HIB Vaccines Aged Out No longer eligi [...]
--- OUTSIDE RECORDS SUMMARY | 2025-07-25 17:29 | XMS_ITS | Clinical Summary ---
Author Organization [facility] Address [address] [place] [address] Care Team Providers Care Payroll And Benefits Analyst Name Role Phone Unavailable Primary Care Provider [...] patient's age to complete this topic 19 [place] [phone] [facility] Self 1995 15 [place] [phone]
== END 2025-07-25 13:45 | disposition home or self-care (01) ==
LOC: HO.NEURO 13:44
PROVIDERS: PCP Family Medicine; Visit Provider Physician Assistant Medical
DX: R25.3 Fasciculation (principal); R25.2 Cramp and spasm; R20.2 Paresthesia of skin
CPT/HCPCS: 95886; 95909

== ENCOUNTER → 2025-07-25 13:48 | Outpatient (BNV) | payer BC, SELFPAY | PROVIDERS: PCP Family Medicine; Visit Provider Physical Medicine & Rehabilitation | DX: R25.3 Fasciculation (principal) | CPT/HCPCS: 95886; 95909 ==

== ENCOUNTER 2025-08-07 10:16 | Outpatient (AMB) | payer BC, SELFPAY ==
[2025-08-07 10:22] VITALS: BP 105/59; PULSE 82; BMI 23.3
--- NOTE | 2025-08-07 10:22 | MHC.OFFVIS ---
Vital Signs 08/07/25 10:22 08/07/25 10:57 Height 5 ft 7 in 5 ft 6 in Weight 149 lb 0.52 oz 5 lb 6 oz BMI 23.3 0.9 BP 105/59 L Blood Pressure Location Lt brachial Position Sitting Pulse 82 Comment pt height incorrect in chart he is 5'6 Intake Visit Reasons: Elevated levels of liver transaminase Intake Note: Judson presents to in office follow up for lab results. CC: Patient reports doing the same as last visit. Denies having any new GI sx today. Manager Mobile Required: No Accompanied by: Self / Same As Patient Allergies Seasonal Allergies Allergy (Mild, Verified 06/20/25 10:03) Unknown No Known Drug Allergies Allergy (Unknown, Verified 08/07/25:) none Fish Containing Products Allergy (Verified 06/20/25 10:03) broke out in hives shellfish derived Allergy (Verified 06/20/25 10:03) food piosining, vomiting, diarrhea HPI HPI Elevated levels of liver transaminase: Details: Assessment & Plan (1) Elevated ALT measurement: Code(s): R74.01 - Elevation of levels of liver transaminase levels Category: Medical (2) Family history of celiac disease: Code(s): Z83.79 - Family history of other diseases of the digestive system Category: Medical Plan - The patient is a 29-year-old male presenting with elevated liver enzymes. - ultrasound with elastography ordered by the primary care provider with stage F0. - Does not consume alcohol; suspicion of a hereditary fatty liver condition due to maternal fatty liver disease history. This also a family history of celiac disease. The patient's stool so are normal and formed but he does have a history of contact dermatitis particularly with shrimp. - Anemia history with current iron supplementation and consequent constipation. - Muscle cramps persist, previously considered potentially related to low iron levels or other factors. - I explained to him this is most likely fatty liver but we will get additional labs to rule out any autoimmune component, ferritin for hemochromatosis, he is negative for hepatitis ab and C but an HIV screen was not done, etc... -return office visit in 6 weeks Orders: Orders CHRIST Reflex Titer and Pattern Today R74.01 - Elevation of levels of liver transaminase levels, Z83.79 - Family history of other diseases of the digestive system C Reactive Protein Today R74.01 - Elevation of levels of liver transaminase levels, Z83.79 - Family history of other diseases of the digestive system Ferritin Today R74.01 - Elevation of levels of liver transaminase levels, Z83.79 - Family history of other diseases of the digestive system Smooth Muscle Antibody Today R74.01 - Elevation of levels of liver transaminase levels, Z83.79 - Family history of other diseases of the digestive system Mitochondrial Antibody Today R74.01 - Elevation of levels of liver transaminase levels, Z83.79 - Family history of other diseases of the digestive system Transglutaminase IgA Today R74.01 - Elevation of levels of liver transaminase levels, Z83.79 - Family history of other diseases of the digestive system Transglutaminase Ab IgG Today R74.01 - Elevation of levels of liver transaminase levels, Z83.79 - Family history of other diseases of the digestive system TSH reflex Free T4 Today R74.01 - Elevation of levels of liver transaminase levels, Z83.79 - Family history of other diseases of the digestive system HIV Ab/Ag Today R74.01 - Elevation of levels of liver transaminase levels, Z83.79 - Family history of other diseases of the digestive system Ceruloplasmin Today R74.01 - Elevation of levels of liver transaminase levels, Z83.79 - Family history of other diseases of the digestive system LABS: Laboratory Tests 06/20/25 11:26 WBC 4.0 L Hgb 13.9 L Hct 41.0 L Plt Count 195 Ferritin 128 Total Bilirubin 0.2 AST 30 ALT 44 H Alkaline Phosphatase 55 C-Reactive Protein < 0.04 Ceruloplasmin 20 CHRIST Screen NEGATIVE Anti-Mitochondrial Ab NEGATIVE Anti-Smooth Muscle Ab <20 Tiss Transglutamin IgG <1.0 Tiss Transglutamin IgA <1.0 HIV 1&2 Ab/P24 Ag 4thGn Nonreactive TODAY'S VISIT [facility] Medical History Annual physical exam Muscle cramps Hypersomnia Asthma Seasonal allergies No pertinent past medical history Surgical History Hx of tonsillectomy Family History Mother Celiac disease Father Heart attack Other Mental health disorder Substance abuse Social History Household Members: Significant Other Both parents involved: No Caregiver staying overnight: No Housing: House Are you a primary long term care phlebotomist to a significant other at home: No Do you presently have visiting nurse or other home services: No 75 years or older and lives alone: No Alcohol intake: never Patient Tobacco Use Status: Never used Tobacco e-Cigarette/Vaping Use: Never Used Second Hand Smoke Exposure: No Special ahsan needs: No Agree to transfusion: Yes service: No Current occupational status: employed 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 Cognitive needs: No Hearing needs: No Vision needs: No Review of Systems Const Denies fatigue, Denies fever(s), Denies night sweats, Denies poor appetite and Denies weight loss ENT Reports Normal hearing present, Denies dental pain, Denies dysphagia, Denies hearing loss, Denies mouth pain, Denies odynophagia, Denies throat swelling, Denies tongue swelling and Reports other (Dentition adequate) Card Reports no additional complaints Resp Reports no additional complaints GI Details: Denies abdominal pain, Denies melena, Denies bloating, Denies hematochezia, Denies constipation, Denies GI cramping, Denies dysphagia, Denies excessive flatus, Denies early satiety, Denies heartburn, Denies diarrhea, Denies nausea, Denies odynophagia, Denies vomiting and Denies hematemesis Musc Details: Fasciculations Skin/Breast Denies pruritus, Denies lesions, Denies rash and Denies jaundice Neuro Reports Normal hearing present and Denies Abnormal speech present Endo Denies fatigue Aller/Immun Denies throat swelling and Denies tongue swelling Physical Exam Vital Signs: Last Vital Signs Pulse 82 08/07/25 10:22 BP 105/59 L 08/07/25 10:22 BMI result Body Mass Index 0.9 Const General: cooperative, no acute distress, well developed and well groomed Nutritional Appearance: average body habitus and well nourished Orientation/consciousness: oriented to person, oriented to place and oriented to time Limitations: No language barrier HEENT Head: Yes normocephalic and Yes atraumatic Eyes General: appearance normal, both eyes and all related structures Pupils: Equal, round and reactive pupils present Neck Neck: Yes normal visual inspection and Yes no lymphadenopathy Thyroid: Thyroid normal Resp Effort & Inspection: normal respiratory effort and able to speak in complete sentences Auscultation: clear to auscultation bilaterally Cardio Rate: regular rate Rhythm: regular rhythm Heart sounds: Normal, physiologic split S2 sound present Peripheral pulses: radial pulses present and posterior tibial pulses present GI Inspection: No distended, No Abdominal panniculus present and Yes striae Palpation (GI): Soft to palpation, nontender, no guarding, not rigid and No hepatosplenomegaly present Percussion: Yes normal to percussion Auscultation: normal bowel sounds Rectal Exam - Male: Yes deferred Skin General skin exam: no rashes or lesions noted, turgor normal, skin not dry, no jaundice, No spider nevi and no striae Rashes: no rashes Nails: normal Neuro General: oriented to person, oriented to place and oriented to time Cranial nerves: Yes Equal, round and reactive pupils present and Yes Normal hearing present Speech: No Abnormal speech present Extrem General: Yes normal to inspection, No clubbing, No cyanosis and No edema Psych Appearance: grossly normal and well kempt Mental Status: mental status grossly normal Speech and movement: Normal speech and movement present Affect: normal affect Attitude: cooperative Thought process: Normal thought process present and not confabulating Thought content: Normal thought content present Insight: Good insight present (Psych) Judgement: Good judgement present (Psych) Assessment & Plan Assessment & Plan (1) Elevated ALT measurement: Code(s): R74.01 - Elevation of levels of liver transaminase levels Category: Medical Plan I explained the results any simply has the genetic tendency to fatty liver. I again educated him that he needs to be careful about gaining weight as he gets older, avoid drinking alcohol on any regular basis, and watch for potential diabetes as fatty liver can be part of metabolic syndrome diseases like diabetes that run together genetically. His height is incorrect in his chart as we have him at 5 ft 7 he is actually 5 ft 6 so his BMI is at the upper range of normal. The liver functions may benefit from mild weight loss but certainly he should not go crazy. He continues to have trouble with body wide muscle fasciculations. She has had extensive testing including normal vitamin-D, normal B12, normal calcium, any seeing a neurologist with an unremarkable EMG. This does not relate to his GI status as far as I can tell but if I have any ideas about the underlying cause I will let him know. He was mildly anemic but has been taking iron supplementation without any impact on the symptoms. Return office visit in 6 months Coding Level of Care Code Est Pt Level 3 (47646) Diagnoses Elevated ALT measurement R74.01
--- OUTSIDE RECORDS SUMMARY | 2025-08-07 12:46 | XMS_ITS | Clinical Summary ---
Author Organization [facility] it Address [address] [place] [address] Care Team Providers Care District Court Justice Name Role Phone Unavailable Primary Care Provider [...]
--- OUTSIDE RECORDS SUMMARY | 2025-08-07 12:46 | XMS_ITS | Clinical Summary ---
Author Organization [facility] Address [address] [place] [address] Care Team Providers Care Application Development Specialist Name Role Phone Unavailable Primary Care Provider [...] patient's age to complete this topic 19 [place] [phone] [facility] Self 1995 15 [place] [phone]
== END 2025-08-07 11:02 | disposition home or self-care (01) ==
LOC: HO.HGI 10:17
PROVIDERS: PCP Family Medicine; Visit Provider Nurse Practitioner
DX: R74.01 Elevation of levels of liver transaminase levels (principal)
CPT/HCPCS: 99213